=== PATIENT | male | born 1960 | race American Indian/Alaskan Native ===

== ENCOUNTER 2017-09-25 01:43 | Inpatient (IN) | payer MEDICARE, MEDICAID ==
[2017-09-25 01:43] VITALS: BMI 50.5
[2017-09-25] MEDS ORDERED: Sodium Chloride 0.9% 1,000 ML IV ONE (02:24)
--- NOTE | 2017-09-25 02:35 | C.PDOC ---
History Of Present Illness 57 year old male with PMHx of morbid obesity s/p bariatric surgery with a gastric sleeve 2 years ago, patient has lost 300 pounds. Patient states after his surgery he developed chronic venous stasis edema. Patient has been seen at a wound care clinic but he stopped going one and half years ago. Patient reports he is changing and doing his own dressings. Patient states that for the past several days he has been having increased pain and drainage from both his legs, mostly the left. Patient denies hx of DM, fever, chills, nausea, vomit, injury, fall, trauma, loss of sensation. Time Seen by Provider: 09/25/17 02:06 Chief Complaint (Nursing): Lower Extremity Problem/Injury History Per: Patient History/Exam Limitations: no limitations Onset/Duration Of Symptoms: Hrs Current Symptoms Are (Timing): Still Present Recent travel outside of the [place]: No Additional History Per: Patient - Knee Description Of Injury: Other Past Medical History Reviewed: Historical Data, Nursing Documentation, Vital Signs Vital Signs: Last Vital Signs Temp 98.0 F 09/25/17 03:55 Pulse 101 H 09/25/17 03:55 Resp 20 09/25/17 03:55 BP 141/67 09/25/17 03:55 Pulse Ox 98 09/25/17 03:55 - Medical History PMH: Anemia, CHF, Diabetes, HTN, Rheumatoid Arthritis, Sleep Apnea Denies: Chronic Kidney Disease Other Surgeries: bariatric surgery - [facility] Procedures DRAINAGE OF LEFT LOWER LEG, OPEN APPROACH (05/19/15) DRAINAGE OF RIGHT LOWER LEG, OPEN APPROACH (05/19/15) NON-INVASIVE MECHANICAL VENTILATION (03/11/13) Family History: States: Unknown Family Hx - Social History Hx Tobacco Use: No Hx Alcohol Use: No Hx Substance Use: No (PAST USE) - Immunization History Hx Tetanus Toxoid Vaccination: No Hx Influenza Vaccination: No Hx Pneumococcal Vaccination: No Review Of Systems Constitutional: Negative for: Fever, Chills Cardiovascular: Negative for: Chest Pain, Palpitations Respiratory: Negative for: Cough, Shortness of Breath Gastrointestinal: Negative for: Nausea, Vomiting, Abdominal Pain Musculoskeletal: Positive for: Leg Pain Neurological: Negative for: Weakness, Numbness Physical Exam - Physical Exam Appears: Non-toxic, No Acute Distress, Other (obese, poor hygiene) Skin: Normal Color, Warm, Dry Head: Atraumatic, Normacephalic Eye(s): bilateral: Normal Inspection Oral Mucosa: Moist Neck: Normal ROM, Supple Chest: Symmetrical Cardiovascular: Rhythm Regular Respiratory: Normal Breath Sounds, No Rales, No Rhonchi, No Wheezing Extremity: Normal ROM, No Tenderness, Capillary Refill (< 2 seconds), Other ( lower extremity old dressing, B/L circumferential necrotic ulcers with surrounding erythema and foul smelling discharge) Pulses: Left Dorsalis Pedis: Normal, Right Dorsalis Pedis: Normal Neurological/Psych: Oriented x3, Normal Speech, Normal Motor, Normal Sensation Gait: Steady ED Course And Treatment - Laboratory Results Result Diagrams: 09/25/17 02:52 09/25/17 02:52 O2 Sat by Pulse Oximetry: 99 (ON RA) Pulse Ox Interpretation: Normal Medical Decision Making Medical Decision Making: Impression: chronic venous stasis edema Plan: * Labs * IV fluids * Blood culture * UA Disposition - Disposition Disposition: HOSPITALIZED Disposition Time: 04:17 Condition: FAIR - Clinical Impression Clinical Impression: Venous stasis dermatitis of both lower extremities, Ulcers of both lower extremities, limited to breakdown of skin - Scribe Statement The provider has reviewed the documentation as recorded by the Scribe Ammon Rincon All medical record entries made by the Scribe were at my direction and personally dictated by me. I have reviewed the chart and agree that the record accurately reflects my personal performance of the history, physical exam, medical decision making, and the department course for this patient. I have also personally directed, reviewed, and agree with the discharge instructions and disposition.
[2017-09-25] MEDS ORDERED: Dakin's Topical 0.25%-Half Strength (480 ml) TOP STA (02:42)
[2017-09-25] MEDS ORDERED: Sodium Chloride 0.9% 1,000 ML ONE (02:45)
[2017-09-25 02:55] LABS: BASO # 0.1 K/uL (0.0-0.2); BASO % 0.9 % (0.0-2.0); EOS # 0.5 K/uL (0.0-0.7); EOS % 7.1 % (0.0-4.0); HEMOGLOBIN 11.9 g/dL (12.0-18.0); LYMPH # 2.7 K/uL (1.0-4.3); MEAN CELL VOLUME 77.8 fL (80.0-94.0); MEAN CORPUSCULAR HEMOGLOBIN 24.8 pg (27.0-31.0); MEAN CORPUSCULAR HGB CONC 31.9 g/dL (33.0-37.0); MEAN PLATELET VOLUME 7.1 fL (7.2-11.7); MONO % 14.6 % (0.0-10.0); NEUT # 2.6 K/uL (1.8-7.0); NEUT % 37.4 % (50.0-75.0); NRBC % 0.2 % (0.0-2.0); RBC 4.79 Mil/uL (4.40-5.90); WHITE BLOOD COUNT 6.9 K/uL (4.8-10.8)
[2017-09-25 03:14] LABS: ALB/GLOB RATIO 0.9 (1.0-2.1); ALBUMIN 3.3 g/dL (3.5-5.0); ALT/SGPT 43 U/L (21-72); AST/SGOT 44 U/L (17-59); BLOOD UREA NITROGEN 12 mg/dL (9-20); CALCIUM 8.4 mg/dl (8.6-10.4); GFR AFRICAN-AMERICAN > 60; GFR NON-AFRICAN AMERICAN > 60
[2017-09-25] MEDS ORDERED: Morphine 4 MG/ML VIAL IV ONE ×2 (03:45→05:30)
[2017-09-25] MEDS ORDERED: Morphine 4 MG/ML VIAL ONE (03:49)
--- NOTE | 2017-09-25 05:29 | CP.PCM.CON ---
<Blake Hart - Last Filed: 09/25/17 05:56> History of Present Illness - History of Present Illness History of Present Illness: Surgery: Dr. Lorenz CC: Chronic LE wounds HPI: 57M w. pmh of obesity, HTN, DM, s/p gastric sleeve 2 yrs ago presents w. exacerbation of B/L LE wounds. Pt states that he has had chronic wounds for several yrs. Wounds were initially being managed by wound care, then by himself with compression wraps. He states that this week he began experiencing increased pain in his calves. Pain is described as burning. Pain is constant. Pain improves with ambulation, worsens w. rest. Pt states that 4 days ago his legs began to weep serous fluid, no odor. He denies F/C, no N/V, no changes in appetite. PMH: See above PSH: Gastric sleeve Meds: MAR reviewed ALL: Iodine Social: No ETOH/tobacco/drugs Fhx: Non-contributory Review of Systems - Review of Systems All systems: reviewed and no additional remarkable complaints except (HPI) Past Patient History - Infectious Disease Hx of Infectious Diseases: None - Past Medical History & Family History Past Medical History?: Yes - Past Social History Smoking Status: Never Smoked - CARDIAC Hx Congestive Heart Failure: Yes Hx Hypertension: Yes - PULMONARY Hx Sleep Apnea: Yes - NEUROLOGICAL Hx Neurological Disorder: No - HEENT Hx HEENT Problems: No - RENAL Hx Chronic Kidney Disease: No - ENDOCRINE/METABOLIC Hx Endocrine Disorders: No - HEMATOLOGICAL/ONCOLOGICAL Hx Anemia: Yes - INTEGUMENTARY Hx Dermatological Problems: No - MUSCULOSKELETAL/RHEUMATOLOGICAL Hx Rheumatoid Arthritis: Yes - GASTROINTESTINAL Hx Gastrointestinal Disorders: Yes Hx Bowel Surgery: Yes - GENITOURINARY/GYNECOLOGICAL Hx Genitourinary Disorders: No - PSYCHIATRIC Hx Substance Use: No (PAST USE) - SURGICAL HISTORY Hx Surgeries: Yes Other/Comment: Gastric Sleeve, R subclavian POC - ANESTHESIA Hx Anesthesia: Yes Hx Anesthesia Reactions: No Meds Allergies/Adverse Reactions: Allergies Allergy/AdvReac Type Severity Reaction Status Date / Time Iodine and Iodide Containing Allergy Intermediate RASH Verified 09/27/17 17:38 Produc shrimp Allergy Intermediate SWELLING Verified 05/19/15 17:56 carafate Allergy NAUSEA Uncoded 10/08/13 02:32 seafood Allergy ANAPHYLAXIS Uncoded 09/27/17 17:39 Physical Exam - Constitutional Appears: Non-toxic, No Acute Distress - Head Exam Head Exam: ATRAUMATIC, NORMOCEPHALIC - Eye Exam Eye Exam: EOMI. absent: Scleral icterus - ENT Exam ENT Exam: Mucous Membranes Moist - Neck Exam Neck exam: Positive for: Full Rom - Respiratory Exam Respiratory Exam: NORMAL BREATHING PATTERN. absent: Accessory Muscle Use, Respiratory Distress - GI/Abdominal Exam GI & Abdominal Exam: Soft. absent: Tenderness - Extremities Exam Additional comments: chronic venous stasis changes of B/L LE, +serous weeping, tender to palpation, warm to touch, distal pulses dopplerable - Neurological Exam Neurological exam: Alert, Oriented x3 Results - Vital Signs Recent Vital Signs: Last Vital Signs Temp 97.5 F L 09/25/17 04:29 Pulse 78 09/25/17 04:29 Resp 20 09/25/17 04:29 BP 162/83 H 09/25/17 04:29 Pulse Ox 100 09/25/17 04:29 - Labs Result Diagrams: 09/25/17 02:52 09/25/17 02:52 Labs: Laboratory Results - last 24 hr 09/25/17 09/25/17 09/25/17 02:52 02:52 03:02 WBC 6.9 RBC 4.79 Hgb 11.9 L Hct 37.3 MCV 77.8 L MCH 24.8 L MCHC 31.9 L RDW 17.0 H Plt Count 270 MPV 7.1 L Neut % (Auto) 37.4 L Lymph % (Auto) 40.0 Sherman % (Auto) 14.6 H Eos % (Auto) 7.1 H Baso % (Auto) 0.9 Neut # (Auto) 2.6 Lymph # (Auto) 2.7 Sherman # (Auto) 1.0 H Eos # (Auto) 0.5 Baso # (Auto) 0.1 ESR 52 H Sodium 143 Potassium 4.3 Chloride 108 H Carbon Dioxide 28 Anion Gap 11 BUN 12 Creatinine 0.8 Est GFR ( Amer) > 60 Est GFR (Non-Af Amer) > 60 POC Glucose (mg/dL) Random Glucose 99 Lactic Acid 1.4 Calcium 8.4 L Total Bilirubin 0.4 AST 44 ALT 43 Alkaline Phosphatase 119 C-Reactive Protein 45.70 H Total Protein 7.1 Albumin 3.3 L Globulin 3.8 Albumin/Globulin Ratio 0.9 L 09/25/17 03:53 WBC RBC Hgb Hct MCV MCH MCHC RDW Plt Count MPV Neut % (Auto) Lymph % (Auto) Sherman % (Auto) Eos % (Auto) Baso % (Auto) Neut # (Auto) Lymph # (Auto) Sherman # (Auto) Eos # (Auto) Baso # (Auto) ESR Sodium Potassium Chloride Carbon Dioxide Anion Gap BUN Creatinine Est GFR ( Amer) Est GFR (Non-Af Amer) POC Glucose (mg/dL) 88 Random Glucose Lactic Acid Calcium Total Bilirubin AST ALT Alkaline Phosphatase C-Reactive Protein Total Protein Albumin Globulin Albumin/Globulin Ratio Assessment & Plan - Assessment and Plan (Free Text) Assessment: 57M w. chronic B/L LE wounds 2/2 venous stasis -Pt had ABIs done out Pt in May -L ROSA: 1.22, L PVV: 386 -R ROSA: 1.19, R PVV: 468 -Will order duplex to R/O DVT -compression/leg elevation -local wound care -f/u Cxs, will start abx if positive -d/w attending Tanner PGY4 <Spenser Lorenz B - Last Filed: 09/30/17 22:13> Meds - Medications Medications: Current Medications Enoxaparin Sodium (Lovenox) 40 mg SC DAILY [facility] Last Admin: 09/30/17 09:39 Dose: Not Given Furosemide (Lasix) 40 mg PO BID [facility] Last Admin: 09/30/17 17:09 Dose: 40 mg Vancomycin/Sodium Chloride (Vancomycin 1 Gm/Ns 200 Ml) 1 gm in 200 mls @ 133.333 mls/hr IVPB Q8H [facility] PRN Reason: Protocol Stop: 10/03/17 18:46 Last Admin: 09/30/17 18:02 Dose: 133.333 mls/hr Morphine Sulfate (Morphine Extended Release Tab) 60 mg PO Q12H [facility] Last Admin: 09/30/17 12:05 Dose: 60 mg Oxycodone HCl (Oxycodone Immediate Release Tab) 30 mg PO Q6H PRN PRN Reason: Pain, severe (8-10) Last Admin: 09/30/17 17:07 Dose: 30 mg Pantoprazole Sodium (Protonix Ec Tab) 40 mg PO DAILY [facility] Last Admin: 09/30/17 11:02 Dose: 40 mg Spironolactone (Aldactone) 25 mg PO BID [facility] Last Admin: 09/30/17 17:07 Dose: 25 mg Results - Vital Signs Recent Vital Signs: Last Vital Signs Temp 98.6 F 09/30/17 15:00 Pulse 87 09/30/17 15:00 Resp 20 09/30/17 15:00 BP 147/78 09/30/17 17:09 Pulse Ox 96 09/30/17 15:00 - Labs Result Diagrams: 09/26/17 07:10 09/26/17 07:10 Attending/Attestation - Attestation I have personally seen and examined this patient.: Yes I have fully participated in the care of the patient.: Yes I have reviewed all pertinent clinical information: Yes Notes (Text): Pt was seen and examined at bedside Agree with above note and assessment Pt with B/L LE cellulitis and Chronic Venous ulcer Vascular surgery consult with Dr. Odonnell No acute General surgical intervention required Plan d.w pt in detail. Risk and benefit explained in detail.
[2017-09-25] MEDS ORDERED: Oxycodone/Acetaminophen 5/325 mg Tab PO ONE (05:48)
--- NOTE | 2017-09-25 07:16 | CP.PCM.CON ---
History of Present Illness - History of Present Illness History of Present Illness: Surgery: Dr. Tariq CC: Chronic LE wounds HPI: 57M w. pmh of obesity, HTN, DM, s/p gastric sleeve 2 yrs ago presents w. exacerbation of B/L LE wounds. Pt states that he has had chronic wounds for several yrs. Wounds were initially being managed by wound care, then by himself with compression wraps. He states that this week he began experiencing increased pain in his calves. Pain is described as burning. Pain is constant. Pain improves with ambulation, worsens w. rest. Pt states that 4 days ago his legs began to weep serous fluid, no odor. He denies F/C, no N/V, no changes in appetite. PMH: See above PSH: Gastric sleeve Meds: MAR reviewed ALL: Iodine Social: No ETOH/tobacco/drugs Fhx: Non-contributory Review of Systems - Review of Systems All systems: reviewed and no additional remarkable complaints except (HPI) Past Patient History - Infectious Disease Hx of Infectious Diseases: None - Past Medical History & Family History Past Medical History?: Yes - Past Social History Smoking Status: Never Smoked - CARDIAC Hx Congestive Heart Failure: Yes Hx Hypertension: Yes - PULMONARY Hx Sleep Apnea: Yes - NEUROLOGICAL Hx Neurological Disorder: No - HEENT Hx HEENT Problems: No - RENAL Hx Chronic Kidney Disease: No - ENDOCRINE/METABOLIC Hx Endocrine Disorders: No - HEMATOLOGICAL/ONCOLOGICAL Hx Anemia: Yes - INTEGUMENTARY Hx Dermatological Problems: No - MUSCULOSKELETAL/RHEUMATOLOGICAL Hx Rheumatoid Arthritis: Yes - GASTROINTESTINAL Hx Gastrointestinal Disorders: Yes Hx Bowel Surgery: Yes - GENITOURINARY/GYNECOLOGICAL Hx Genitourinary Disorders: No - PSYCHIATRIC Hx Substance Use: No (PAST USE) - SURGICAL HISTORY Hx Surgeries: Yes Other/Comment: Gastric Sleeve, R subclavian POC - ANESTHESIA Hx Anesthesia: Yes Hx Anesthesia Reactions: No Meds Allergies/Adverse Reactions: Allergies Allergy/AdvReac Type Severity Reaction Status Date / Time Iodine and Iodide Containing Allergy Intermediate RASH Verified 05/19/15 11:58 Produc shrimp Allergy Intermediate SWELLING Verified 05/19/15 17:56 carafate Allergy NAUSEA Uncoded 10/08/13 02:32 seafood Allergy ANAPHYLAXIS Uncoded 03/07/17 00:20 - Medications Medications: Current Medications Pneumococcal Polyvalent Vaccine (Pneumovax 23 Vaccine) 0.5 ml IM .ONCE ONE Stop: 09/28/17 10:01 Physical Exam - Constitutional Appears: Non-toxic, No Acute Distress - Head Exam Head Exam: ATRAUMATIC, NORMOCEPHALIC - Eye Exam Eye Exam: EOMI - ENT Exam ENT Exam: Mucous Membranes Moist - Respiratory Exam Respiratory Exam: NORMAL BREATHING PATTERN. absent: Accessory Muscle Use, Respiratory Distress - GI/Abdominal Exam GI & Abdominal Exam: Soft. absent: Tenderness - Extremities Exam Additional comments: chronic venous stasis changes of B/L LE, +serous weeping, tender to palpation, warm to touch, distal pulses dopplerable - Neurological Exam Neurological exam: Alert, Oriented x3 - Skin Skin Exam: Dry, Normal Color Results - Vital Signs Recent Vital Signs: Last Vital Signs Temp 97.5 F L 09/25/17 04:29 Pulse 78 09/25/17 04:29 Resp 20 09/25/17 04:29 BP 162/83 H 09/25/17 04:29 Pulse Ox 100 09/25/17 04:29 - Labs Result Diagrams: 09/25/17 02:52 09/25/17 02:52 Labs: Laboratory Results - last 24 hr 09/25/17 09/25/17 09/25/17 02:52 02:52 03:02 WBC 6.9 RBC 4.79 Hgb 11.9 L Hct 37.3 MCV 77.8 L MCH 24.8 L MCHC 31.9 L RDW 17.0 H Plt Count 270 MPV 7.1 L Neut % (Auto) 37.4 L Lymph % (Auto) 40.0 [place] % (Auto) 14.6 H Eos % (Auto) 7.1 H Baso % (Auto) 0.9 Neut # (Auto) 2.6 Lymph # (Auto) 2.7 [place] # (Auto) 1.0 H Eos # (Auto) 0.5 Baso # (Auto) 0.1 ESR 52 H Sodium 143 Potassium 4.3 Chloride 108 H Carbon Dioxide 28 Anion Gap 11 BUN 12 Creatinine 0.8 Est GFR ( Amer) > 60 Est GFR (Non-Af Amer) > 60 POC Glucose (mg/dL) Random Glucose 99 Lactic Acid 1.4 Calcium 8.4 L Total Bilirubin 0.4 AST 44 ALT 43 Alkaline Phosphatase 119 C-Reactive Protein 45.70 H Total Protein 7.1 Albumin 3.3 L Globulin 3.8 Albumin/Globulin Ratio 0.9 L 09/25/17 03:53 WBC RBC Hgb Hct MCV MCH MCHC RDW Plt Count MPV Neut % (Auto) Lymph % (Auto) [place] % (Auto) Eos % (Auto) Baso % (Auto) Neut # (Auto) Lymph # (Auto) [place] # (Auto) Eos # (Auto) Baso # (Auto) ESR Sodium Potassium Chloride Carbon Dioxide Anion Gap BUN Creatinine Est GFR ( Amer) Est GFR (Non-Af Amer) POC Glucose (mg/dL) 88 Random Glucose Lactic Acid Calcium Total Bilirubin AST ALT Alkaline Phosphatase C-Reactive Protein Total Protein Albumin Globulin Albumin/Globulin Ratio Assessment & Plan - Assessment and Plan (Free Text) Assessment: 57M w. chronic B/L LE wounds 2/2 venous stasis -Pt had ABIs done out Pt in May -L ROSA: 1.22, L PVV: 386 -R ROSA: 1.19, R PVV: 468 -Will order duplex to R/O DVT -compression/leg elevation -local wound care -f/u Cxs, will start abx if positive -d/w attending Tanner PGY4
--- NOTE | 2017-09-25 07:42 | CP.PCM.PN ---
Subjective - Date & Time of Evaluation Date of Evaluation: 09/25/17 Time of Evaluation: 07:42 - Subjective Subjective: Internal Medicine Progress Note - Dr Dereje Ybarra Service Patient seen and examined at bedside. Per nursing no acute events overnight. Patient presented to the hospital for worsening lower extremity edema and non- healing wound on his left lower leg. Patient states that he has been having increasing pain and drainage in his legs. He has not seen a ladle pourer is years and does his own dressing changes at home. Patient currently asking for pain medication, offers no other complaints at this time. Denies headaches, dizziness , cp, palpitations, sob, abdominal pain, urinary symptoms. Objective - Vital Signs/Intake and Output Vital Signs (last 24 hours): Temp Pulse Resp BP Pulse Ox 97.5 F L 78 20 162/83 H 100 09/25/17 04:29 09/25/17 04:29 09/25/17 04:29 09/25/17 04:29 09/25/17 04:29 Intake and Output: 09/25/17 09/25/17 06:59 18:59 Intake Total 300 Output Total 0 Balance 300 - Medications Medications: Current Medications Pneumococcal Polyvalent Vaccine (Pneumovax 23 Vaccine) 0.5 ml IM .ONCE ONE Stop: 09/28/17 10:01 - Labs Labs: 09/25/17 02:52 09/25/17 02:52 - Constitutional Appears: Non-toxic, No Acute Distress - Head Exam Head Exam: ATRAUMATIC, NORMAL INSPECTION, NORMOCEPHALIC - Eye Exam Eye Exam: EOMI, Normal appearance Pupil Exam: NORMAL ACCOMODATION - ENT Exam ENT Exam: Mucous Membranes Moist - Neck Exam Neck Exam: Full ROM - Respiratory Exam Respiratory Exam: Clear to Ausculation Bilateral, NORMAL BREATHING PATTERN. absent: Rales, Rhonchi, Wheezes - Cardiovascular Exam Cardiovascular Exam: REGULAR RHYTHM, +S1, +S2 - GI/Abdominal Exam GI & Abdominal Exam: Soft, Normal Bowel Sounds. absent: Guarding, Rigid, Tenderness - Rectal Exam Rectal Exam: Deferred - Extremities Exam Additional comments: Chronic venous stasis skin changes Both lower extremities dressed in EVELYN bandages Lower extremity edema bilaterally +Pedal pulses bilaterally - Back Exam Back Exam: NORMAL INSPECTION - Neurological Exam Neurological Exam: Alert, Awake, Oriented x3 - Psychiatric Exam Psychiatric exam: Normal Affect, Normal Mood - Skin Skin Exam: Dry, Normal Color, Warm Assessment and Plan - Assessment and Plan (Free Text) Assessment: A/P: Patient is a 57 year old male with past medical history of Hypertension, Obesity, S/P gastric sleeve 2 years ago presented the ED for worsening pain and drainage from his left lower extremity. Lower extremity wound/Chronic Venous stasis -Stable, afebrile -Lower extremity dopplers negative for DVT -ESR and CRP elevated -Wound cultures pending -Started on IV Zosyn 3.375mg Q6H and IV Vancomycin 1gm daily -Wound care consult placed -Continue Lasix 40mg PO BID, Aldactone 25mg PO daily -F/U hgbA1c, Lipid panel, procalcitonin -Infectious Disease on consult, help appreciated -Vascular on consult, help appreciated -Podiatry on consult, help appreciated -Physical therapy evaluation ordered Chronic Opiate use 2/2 chronic pain -Patient states that he has been on pain medications for chronic back pain and leg pain -Confirmed with Pharamacy, patient takes Oxycodone 30mg PO Q6H prn, Morphine 60mg Q12H [facility] -Will restart these medications while in house -He sees Dr Amaro for pain management outpatient Poor Venous Access -Patient has a portacath that non-functioning -PICC line consult placed GI/DVT ppx: -Protonix 40mg PO daily -Lovenox 40mg SC daily Plan discussed with Dr Dereje Ross DO PGY-2
[2017-09-25] MEDS: Enoxaparin 40 mg Syringe SC SCH (10:32)
[2017-09-25] MEDS ORDERED: OXYCODONE HYDROCHLORIDE 30 MG PO PRN (11:26)
[2017-09-25] MEDS ORDERED: Morphine 60 mg SR Tab PO SCH (11:45)
[2017-09-25 11:50] LABS: HDL CHOLESTEROL 31 mg/dL (30-70)
[2017-09-25] MEDS ORDERED: OXYCODONE HYDROCHLORIDE 30 MG PO SCH (12:00)
[2017-09-25 12:01] LABS: LDL CHOLESTEROL 63 mg/dL (0-129)
[2017-09-25] MEDS: Pantoprazole 40 mg EC Tab PO SCH (12:33)
[2017-09-25] MEDS: Morphine 30 mg SR Tab PO SCH (12:33)
[2017-09-25] MEDS: Piperacill/Tazo 3.375gm in Dex 3.375 GM/50 ML BAG IVPB SCH ×2 (14:00→19:20)
[2017-09-25] MEDS: Vancomycin 1 gm/NS 200 ml 1 GM/200 ML BAG IVPB SCH (14:45)
[2017-09-25 15:09] LABS: URINE BILIRUBIN NEGATIVE (NEGATIVE); URINE BLOOD NEGATIVE (NEGATIVE); URINE CLARITY Clear (Clear); URINE COLOR Yellow (YELLOW); URINE GLUCOSE (UA) NORMAL (Normal); URINE LEUKOCYTE ESTERASE NEG Leu/uL (Negative); URINE PROTEIN NEGATIVE (NEGATIVE)
--- NOTE | 2017-09-25 16:08 | VASCLAB ---
PROCEDURE: Lower Extremity Venous Duplex Exam. HISTORY: Pain in limb, r/o dvt PRIORS: None. TECHNIQUE: Bilateral common femoral, femoral, popliteal and posterior tibial, peroneal and great saphenous veins were evaluated. Flow was assessed with color Doppler, compressibility, assessment of phasic flow and augmentation response. Report prepared by MARISABEL Sadler, RVT FINDINGS: RIGHT: 1. Common Femoral Vein: 1.1. Compressibility - Fully compressible: Thrombus - None : Flow - Phasic: Augmentation -Normal: Reflux - None. 2. Femoral Vein: 2.1. Compressibility - Fully compressible: Thrombus - None : Flow - Phasic: Augmentation -Normal: Reflux - None. 3. Popliteal Vein: 3.1. Compressibility - Fully compressible: Thrombus - None : Flow - Phasic: Augmentation -Normal: Reflux - None. 4. Posterior Tibial Vein: 5. Peroneal Vein: 6. Great Saphenous Vein: 6.1. Compressibility - Fully compressible: Thrombus - None: Flow - Phasic: Augmentation - Normal: Reflux - None. LEFT: 1. Common Femoral Vein: 1.1. Compressibility - Fully compressible: Thrombus - None: Flow - Phasic: Augmentation -Normal: Reflux - None. 2. Femoral Vein: 2.1. Compressibility - Fully compressible: Thrombus - None: Flow - Phasic: Augmentation -Normal: Reflux - None. 3. Popliteal Vein: 3.1. Compressibility - Fully compressible: Thrombus - None : Flow - Phasic: Augmentation -Normal: Reflux - None. 4. Posterior Tibial Vein: 5. Peroneal Vein: 6. Great Saphenous Vein: 6.1. Compressibility - Fully compressible: Thrombus - None: Flow - Phasic: Augmentation - Normal: Reflux - None. OTHER FINDINGS: Unable to image bilateral posterior tibial and peroneal veins, due to swelling and wounds. IMPRESSION: Right: No evidence of deep or superficial vein thrombosis of the right lower extremity, for those imaged veins. Normal valve function noted of the right side. Left: No evidence of deep or superficial vein thrombosis of the left lower extremity, for those imaged veins. Normal valve function noted of the left side.
--- NOTE | 2017-09-25 17:24 | RAD ---
HISTORY: PICC Insertion COMPARISON: Chest radiograph dated 05/19/2015 FINDINGS: LUNGS: No active pulmonary disease. PLEURA: No significant pleural effusion identified, no pneumothorax apparent. CARDIOVASCULAR: Cardiomediastinal silhouette stably enlarged. OSSEOUS STRUCTURES: Unchanged. VISUALIZED UPPER ABDOMEN: Normal. OTHER FINDINGS: New left upper extremity PICC with catheter tip at the junction of the brachiocephalic vein and SVC. Right internal jugular access central venous catheter, unchanged. IMPRESSION: New left upper extremity PICC with catheter tip at the junction of the brachiocephalic vein and SVC.
[2017-09-25] MEDS: oxyCODONE 30 mg Immediate Release Tab PO PRN (17:57)
--- NOTE | 2017-09-25 20:55 | CP.PCM.HP ---
Past Patient History - Infectious Disease Hx of Infectious Diseases: None - Past Medical History & Family History Past Medical History?: Yes - Past Social History Smoking Status: Never Smoked - CARDIAC Hx Congestive Heart Failure: Yes Hx Hypertension: Yes - PULMONARY Hx Sleep Apnea: Yes - NEUROLOGICAL Hx Neurological Disorder: No - HEENT Hx HEENT Problems: No - RENAL Hx Chronic Kidney Disease: No - ENDOCRINE/METABOLIC Hx Endocrine Disorders: No - HEMATOLOGICAL/ONCOLOGICAL Hx Anemia: Yes - INTEGUMENTARY Hx Dermatological Problems: No - MUSCULOSKELETAL/RHEUMATOLOGICAL Hx Arthritis: Yes (KNEE, HIP, BACK) Hx Rheumatoid Arthritis: Yes - GASTROINTESTINAL Hx Gastrointestinal Disorders: Yes Hx Bowel Surgery: Yes - GENITOURINARY/GYNECOLOGICAL Hx Genitourinary Disorders: No - PSYCHIATRIC Hx Substance Use: No (PAST USE) - SURGICAL HISTORY Hx Surgeries: Yes Other/Comment: Gastric Sleeve, R subclavian POC - ANESTHESIA Hx Anesthesia: Yes Hx Anesthesia Reactions: No Meds Allergies/Adverse Reactions: Allergies Allergy/AdvReac Type Severity Reaction Status Date / Time Iodine and Iodide Containing Allergy Intermediate RASH Verified 05/19/15 11:58 Produc shrimp Allergy Intermediate SWELLING Verified 05/19/15 17:56 carafate Allergy NAUSEA Uncoded 10/08/13 02:32 seafood Allergy ANAPHYLAXIS Uncoded 03/07/17 00:20 Physical Exam - Constitutional Appears: Well - Head Exam Head Exam: ATRAUMATIC, NORMAL INSPECTION, NORMOCEPHALIC - Eye Exam Eye Exam: EOMI, Normal appearance, PERRL Pupil Exam: NORMAL ACCOMODATION, PERRL - ENT Exam ENT Exam: Mucous Membranes Moist, Normal Exam - Neck Exam Neck exam: Positive for: Normal Inspection - Respiratory Exam Respiratory Exam: Decreased Breath Sounds - Cardiovascular Exam Cardiovascular Exam: REGULAR RHYTHM, +S1, +S2 - GI/Abdominal Exam GI & Abdominal Exam: Diminished Bowel Sounds, Soft - Rectal Exam Rectal Exam: Deferred Results - Vital Signs Recent Vital Signs: Last Vital Signs Temp 98.1 F 09/25/17 15:56 Pulse 72 09/25/17 15:56 Resp 20 09/25/17 15:56 BP 130/84 09/25/17 17:59 Pulse Ox 100 09/25/17 15:56 - Labs Result Diagrams: 09/25/17 02:52 09/25/17 02:52 Labs: Laboratory Results - last 24 hr 09/25/17 09/25/17 09/25/17 02:52 02:52 03:02 WBC 6.9 RBC 4.79 Hgb 11.9 L Hct 37.3 MCV 77.8 L MCH 24.8 L MCHC 31.9 L RDW 17.0 H Plt Count 270 MPV 7.1 L Neut % (Auto) 37.4 L Lymph % (Auto) 40.0 [place] % (Auto) 14.6 H Eos % (Auto) 7.1 H Baso % (Auto) 0.9 Neut # (Auto) 2.6 Lymph # (Auto) 2.7 [place] # (Auto) 1.0 H Eos # (Auto) 0.5 Baso # (Auto) 0.1 ESR 52 H Sodium 143 Potassium 4.3 Chloride 108 H Carbon Dioxide 28 Anion Gap 11 BUN 12 Creatinine 0.8 Est GFR ( Amer) > 60 Est GFR (Non-Af Amer) > 60 POC Glucose (mg/dL) Random Glucose 99 Hemoglobin A1c Lactic Acid 1.4 Calcium 8.4 L Total Bilirubin 0.4 AST 44 ALT 43 Alkaline Phosphatase 119 C-Reactive Protein 45.70 H Total Protein 7.1 Albumin 3.3 L Globulin 3.8 Albumin/Globulin Ratio 0.9 L Triglycerides 130 D Cholesterol 141 LDL Cholesterol Direct 63 HDL Cholesterol 31 Urine Color Urine Clarity Urine pH Ur Specific [place] Urine Protein Urine Glucose (UA) Urine Ketones Urine Blood Urine Nitrate Urine Bilirubin Urine Urobilinogen Ur Leukocyte Esterase Urine WBC (Auto) Urine RBC (Auto) 09/25/17 09/25/17 09/25/17 03:53 11:40 14:56 WBC RBC Hgb Hct MCV MCH MCHC RDW Plt Count MPV Neut % (Auto) Lymph % (Auto) [place] % (Auto) Eos % (Auto) Baso % (Auto) Neut # (Auto) Lymph # (Auto) [place] # (Auto) Eos # (Auto) Baso # (Auto) ESR Sodium Potassium Chloride Carbon Dioxide Anion Gap BUN Creatinine Est GFR ( Amer) Est GFR (Non-Af Amer) POC Glucose (mg/dL) 88 Random Glucose Hemoglobin A1c 5.9 Lactic Acid Calcium Total Bilirubin AST ALT Alkaline Phosphatase C-Reactive Protein Total Protein Albumin Globulin Albumin/Globulin Ratio Triglycerides Cholesterol LDL Cholesterol Direct HDL Cholesterol Urine Color Yellow Urine Clarity Clear Urine pH 5.0 Ur Specific [place] 1.015 Urine Protein Negative Urine Glucose (UA) Normal Urine Ketones Negative Urine Blood Negative Urine Nitrate Negative Urine Bilirubin Negative Urine Urobilinogen 2.0 Ur Leukocyte Esterase Neg Urine WBC (Auto) < 1 Urine RBC (Auto) 1
[2017-09-26] MEDS: Morphine 30 mg SR Tab PO SCH ×2 (00:25→11:49)
[2017-09-26] MEDS: Piperacill/Tazo 3.375gm in Dex 3.375 GM/50 ML BAG IVPB SCH ×4 (01:24→18:52)
[2017-09-26 07:36] LABS: BASO % 0.4 % (0.0-2.0); EOS # 0.3 K/uL (0.0-0.7); EOS % 7.2 % (0.0-4.0); HEMOGLOBIN 12.3 g/dL (12.0-18.0); LYMPH # 1.9 K/uL (1.0-4.3); LYMPH % 41.3 % (20.0-40.0); MEAN CELL VOLUME 78.2 fL (80.0-94.0); MEAN CORPUSCULAR HEMOGLOBIN 25.5 pg (27.0-31.0); MEAN CORPUSCULAR HGB CONC 32.6 g/dL (33.0-37.0); MEAN PLATELET VOLUME 7.3 fL (7.2-11.7); MONO # 0.5 K/uL (0.0-0.8); NEUT # 1.9 K/uL (1.8-7.0); NEUT % 41.1 % (50.0-75.0); NRBC % 0.1 % (0.0-2.0); RBC 4.82 Mil/uL (4.40-5.90); RED CELL DISTRIBUTION WIDTH 17.7 % (11.5-14.5); WHITE BLOOD COUNT 4.7 K/uL (4.8-10.8)
[2017-09-26 07:41] LABS: ALB/GLOB RATIO 0.9 (1.0-2.1); ALBUMIN 3.1 g/dL (3.5-5.0); ALT/SGPT 35 U/L (21-72); AST/SGOT 48 U/L (17-59); BLOOD UREA NITROGEN 10 mg/dL (9-20); CALCIUM 8.3 mg/dl (8.6-10.4); GFR AFRICAN-AMERICAN > 60; GFR NON-AFRICAN AMERICAN > 60
--- NOTE | 2017-09-26 08:15 | CP.PCM.PN ---
Subjective - Date & Time of Evaluation Date of Evaluation: 09/26/17 Time of Evaluation: 08:12 - Subjective Subjective: Vascular Surgery Progress Note for Dr. Tariq Pt seen and evaluated this AM. Awake and resting comfortably in bed. Exhibiting pain in his LE especially the left leg. Dressings were in place. Denies any f/c , SOB, CP, or n/v/d. Objective - Vital Signs/Intake and Output Vital Signs (last 24 hours): Temp Pulse Resp BP Pulse Ox 98 F 71 20 138/77 98 09/26/17 00:00 09/26/17 00:00 09/26/17 00:00 09/26/17 00:00 09/26/17 00:00 Intake and Output: 09/26/17 09/26/17 06:59 18:59 Intake Total 450 Output Total 400 Balance 50 - Medications Medications: Current Medications Enoxaparin Sodium (Lovenox) 40 mg SC DAILY [facility] Last Admin: 09/25/17 10:32 Dose: Not Given Furosemide (Lasix) 40 mg PO BID [facility] Last Admin: 09/25/17 17:59 Dose: 40 mg Piperacillin Sod/Tazobactam Sod (Zosyn 3.375 Gm Iv Premix) 3.375 gm in 50 mls @ 100 mls/hr IVPB Q6H [facility] PRN Reason: Protocol Last Admin: 09/26/17 07:24 Dose: Not Given Vancomycin/Sodium Chloride (Vancomycin 1 Gm/Ns 200 Ml) 1 gm in 200 mls @ 133.333 mls/hr IVPB Q24H [facility] PRN Reason: Protocol Stop: 09/30/17 14:16 Last Admin: 09/25/17 14:45 Dose: Not Given Morphine Sulfate (Morphine Extended Release Tab) 60 mg PO Q12H [facility] Last Admin: 09/26/17 00:25 Dose: 60 mg Oxycodone HCl (Oxycodone Immediate Release Tab) 30 mg PO Q8H PRN PRN Reason: Pain, severe (8-10) Last Admin: 09/25/17 17:57 Dose: 30 mg Pantoprazole Sodium (Protonix Ec Tab) 40 mg PO DAILY [facility] Last Admin: 09/25/17 12:33 Dose: 40 mg Pneumococcal Polyvalent Vaccine (Pneumovax 23 Vaccine) 0.5 ml IM .ONCE ONE Stop: 09/28/17 10:01 Spironolactone (Aldactone) 25 mg PO BID [facility] Last Admin: 09/25/17 17:58 Dose: 25 mg - Labs Labs: 09/26/17 07:10 09/26/17 07:10 - Constitutional Appears: Well, Non-toxic, No Acute Distress - Head Exam Head Exam: ATRAUMATIC, NORMAL INSPECTION, NORMOCEPHALIC - Eye Exam Eye Exam: EOMI, Normal appearance - Respiratory Exam Respiratory Exam: Clear to Ausculation Bilateral, NORMAL BREATHING PATTERN - Cardiovascular Exam Cardiovascular Exam: REGULAR RHYTHM, +S1, +S2. absent: Murmur - GI/Abdominal Exam GI & Abdominal Exam: Soft, Normal Bowel Sounds. absent: Tenderness - Extremities Exam Extremities Exam: Calf Tenderness, Pedal Edema, Tenderness Additional comments: erythematous, with drainage, excoriations and edema dressings intact - Neurological Exam Neurological Exam: Alert, Awake, Oriented x3 - Psychiatric Exam Psychiatric exam: Normal Affect, Normal Mood - Skin Skin Exam: Erythema Assessment and Plan - Assessment and Plan (Free Text) Assessment: 57M w. chronic B/L LE wounds 2/2 venous stasis Plan: c/w compression/leg elevation c/w local wound care - Dr. Avilez Podiatry consulted f/u Cxs, will start abx if positive - ID consulted no further surgical intervention at this time please reconsult as needed Adi Cronin PGY1
[2017-09-26] MEDS: Pantoprazole 40 mg EC Tab PO SCH (09:16)
[2017-09-26] MEDS: Enoxaparin 40 mg Syringe SC SCH (09:19)
--- NOTE | 2017-09-26 10:29 | CP.PCM.PN ---
Subjective - Date & Time of Evaluation Date of Evaluation: 09/26/17 Time of Evaluation: 10:26 - Subjective Subjective: pt has pain lower ext stasis dermatitis and ulcers infected Objective - Vital Signs/Intake and Output Vital Signs (last 24 hours): Temp Pulse Resp BP Pulse Ox 98.5 F 93 H 20 144/70 99 09/26/17 08:00 09/26/17 08:00 09/26/17 08:00 09/26/17 09:16 09/26/17 08:00 Intake and Output: 09/26/17 09/26/17 06:59 18:59 Intake Total 450 Output Total 400 Balance 50 - Medications Medications: Current Medications Enoxaparin Sodium (Lovenox) 40 mg SC DAILY [facility] Last Admin: 09/26/17 09:19 Dose: Not Given Furosemide (Lasix) 40 mg PO BID [facility] Last Admin: 09/26/17 09:16 Dose: 40 mg Piperacillin Sod/Tazobactam Sod (Zosyn 3.375 Gm Iv Premix) 3.375 gm in 50 mls @ 100 mls/hr IVPB Q6H [facility] PRN Reason: Protocol Last Admin: 09/26/17 07:24 Dose: Not Given Vancomycin/Sodium Chloride (Vancomycin 1 Gm/Ns 200 Ml) 1 gm in 200 mls @ 133.333 mls/hr IVPB Q24H [facility] PRN Reason: Protocol Stop: 09/30/17 14:16 Last Admin: 09/25/17 14:45 Dose: Not Given Morphine Sulfate (Morphine Extended Release Tab) 60 mg PO Q12H [facility] Last Admin: 09/26/17 00:25 Dose: 60 mg Oxycodone HCl (Oxycodone Immediate Release Tab) 30 mg PO Q8H PRN PRN Reason: Pain, severe (8-10) Last Admin: 09/25/17 17:57 Dose: 30 mg Pantoprazole Sodium (Protonix Ec Tab) 40 mg PO DAILY [facility] Last Admin: 09/26/17 09:16 Dose: 40 mg Pneumococcal Polyvalent Vaccine (Pneumovax 23 Vaccine) 0.5 ml IM .ONCE ONE Stop: 09/28/17 10:01 Spironolactone (Aldactone) 25 mg PO BID [facility] Last Admin: 09/26/17 09:16 Dose: 25 mg - Labs Labs: 09/26/17 07:10 09/26/17 07:10 - Constitutional Appears: Non-toxic, In Acute Distress - Head Exam Head Exam: ATRAUMATIC - Eye Exam Eye Exam: Conjunctival injection - ENT Exam ENT Exam: Mucous Membranes Moist - Neck Exam Neck Exam: Full ROM - Respiratory Exam Respiratory Exam: Clear to Ausculation Bilateral - Cardiovascular Exam Cardiovascular Exam: REGULAR RHYTHM - GI/Abdominal Exam GI & Abdominal Exam: Normal Bowel Sounds - Rectal Exam Rectal Exam: Deferred - Exam Exam: NORMAL INSPECTION - Extremities Exam Extremities Exam: Calf Tenderness, Pedal Edema Additional comments: ulcers infected - Neurological Exam Neurological Exam: Alert, Normal Gait, Oriented x3 - Psychiatric Exam Psychiatric exam: Normal Affect - Skin Skin Exam: Normal Color Assessment and Plan - Assessment and Plan (Free Text) Assessment: infected leg ulcers stasis dermatitis s/p beriatric surgery morbid obesity bach pain hx Plan: id consult cont wound care podiatric consult and as per orders
--- NOTE | 2017-09-26 10:33 | CP.PCM.CON ---
History of Present Illness - History of Present Illness History of Present Illness: 57M w. pmh of obesity, HTN, DM, s/p gastric sleeve 2 yrs ago presents w. exacerbation of B/L LE wounds. Pt states that he has had chronic wounds for several yrs. Wounds were initially being managed by wound care, then by himself with compression wraps. He states that this week he began experiencing increased pain in his calves. Pain is described as burning. Pain is constant. Pain improves with ambulation, worsens w. rest. Pt states that 4 days ago his legs began to weep serous fluid, no odor. He denies F/C, no N/V, no changes in appetite. PMH: See above PSH: Gastric sleeve Meds: MAR reviewed ALL: Iodine Social: No ETOH/tobacco/drugs Fhx: Non-contributory Review of Systems - Review of Systems All systems: reviewed and no additional remarkable complaints except - Constitutional Constitutional: As Per HPI - EENT Eyes: absent: As Per HPI, Blind Spots, Blurred Vision, Change in Vision, Decreased Night Vision, Diplopia, Discharge, Dry Eye, Exophthalmos, Floaters, Irritation, Itchy Eyes, Loss of Peripheral Vision, Pain, Photophobia, Requires Corrective Lenses, Sees Flashes, Spots in Vision, Tunnel Vision, Other Visual Disturbances, Loss of Vision, Other Ears: absent: As Per HPI, Decreased Hearing, Ear Discharge, Ear Pain, Tinnitus, Abnormal Hearing, Disequilibrium, Dizziness, Other Nose/Mouth/Throat: absent: As Per HPI, Epistaxis, Nasal Congestion, Nasal Discharge, Nasal Obstruction, Nasal Trauma, Nose Pain, Post Nasal Drip, Sinus Pain, Sinus Pressure, Bleeding Gums, Change in Voice, Dental Pain, Dry Mouth, Dysphagia, Halitosis, Hoarsness, Lip Swelling, Mouth Lesions, Mouth Pain, Odynophagia, Sore Throat, Throat Swelling, Tongue Swelling, Facial Pain, Neck Pain, Neck Mass, Other - Cardiovascular Cardiovascular: absent: As Per HPI, Acrocyanosis, Chest Pain, Chest Pain at Rest , Chest Pain with Activity, Claudication, Diaphoresis, Dyspnea, Dyspnea on Exertion, Edema, Irregular Heart Rhythm, Pain Radiating to Arm/Neck/Jaw, Leg Edema, Leg Ulcers, Lightheadedness, Orthopnea, Palpitations, Paroxysmal Nocturnal Dyspnea, Pedal Edema, Radiating Pain, Rapid Heart Rate, Slow Heart Rate, Syncope, Other - Respiratory Respiratory: absent: As Per HPI, Cough, Dyspnea, Hemoptysis, Dyspnea on Exertion , Wheezing, Snoring, Stridor, Pain on Inspiration, Chest Congestion, Excessive Mucous Production, Change in Mucous Color, Pain with Coughing, Other - Gastrointestinal Gastrointestinal: absent: As Per HPI, Abdominal Pain, Belching, Bloating, Change in Bowel Habits, Change in Stool Character, Coffee Ground Emesis, Constipation, Cramping, Diarrhea, Dyspepsia, Dysphagia, Early Satiety, Excessive Flatus, Fecal Incontinence, Heartburn, Hematemesis, Hematochezia, Loose Stools, Melena, Nausea, Odynophagia, Temesmus, Vomiting, Other - Genitourinary Genitourinary: absent: As Per HPI, Change in Urinary Stream, Difficulty Urinating, Dysuria, Flank Pain, Hematuria, Pyuria, Nocturia, Urinary Incontinence, Urinary Frequency, Urinary Hesitance, Urinary Urgency, Voiding Freq/Small Amts, Freq UTI, Hx Renal/Bladder Calculi, Hx /Renal Surgery, Bladder Distension, Other - Musculoskeletal Musculoskeletal: As Per HPI - Integumentary Integumentary: As Per HPI, Skin Pain, Wounds - Neurological Neurological: absent: As Per HPI, Abnormal Gait, Abnormal Hearing, Abnormal Movements, Abnormal Speech, Behavioral Changes, Burning Sensations, Confusion, Convulsions, Disequilibrium, Dizziness, Numbness, Focal Weakness, Frequent Falls , Headaches, Lack of Coordination, Loss of Vision, Memory Loss, Paresthesias, Radicular Pain, Restless Legs, Sensory Deficit, Syncope, Tingling, Tremor, Vertigo, Weakness, Other Visual Disturbances, Other - Psychiatric Psychiatric: absent: As Per HPI, Abnormal Sleep Pattern, Anhedonia, Anxiety, Auditory Hallucinations, Behavioral Changes, Change in Appetite, Change in Libido, Confusion, Depression, Difficulty Concentrating, Hallucinations, Homicidal Ideation, Hopelessness, Irritability, Memory Loss, Mood Swings, Panic Attacks, Paranoia, Suicidal Ideation, Visual Hallucinations, Tactile Hallucinations, Other - Endocrine Endocrine: absent: As Per HPI, Change in Body Appearance, Change in Libido, Cold Intolorance, Deepening of Voice, Excessive Sweating, Fatigue, Flushing, Heat Intolorance, Increase in Ring/Shoe/Hat Size, Palpitations, Polydipsia, Polyphagia, Polyuria, Other - Hematologic/Lymphatic Hematologic: absent: As Per HPI, Easy Bleeding, Easy Bruising, Lymphadenopathy, Other Past Patient History - Infectious Disease Hx of Infectious Diseases: None - Past Medical History & Family History Past Medical History?: Yes - Past Social History Smoking Status: Never Smoked - CARDIAC Hx Congestive Heart Failure: Yes Hx Hypertension: Yes - PULMONARY Hx Sleep Apnea: Yes - NEUROLOGICAL Hx Neurological Disorder: No - HEENT Hx HEENT Problems: No - RENAL Hx Chronic Kidney Disease: No - ENDOCRINE/METABOLIC Hx Endocrine Disorders: No - HEMATOLOGICAL/ONCOLOGICAL Hx Anemia: Yes - INTEGUMENTARY Hx Dermatological Problems: No - MUSCULOSKELETAL/RHEUMATOLOGICAL Hx Arthritis: Yes (KNEE, HIP, BACK) Hx Rheumatoid Arthritis: Yes - GASTROINTESTINAL Hx Gastrointestinal Disorders: Yes Hx Bowel Surgery: Yes - GENITOURINARY/GYNECOLOGICAL Hx Genitourinary Disorders: No - PSYCHIATRIC Hx Substance Use: No (PAST USE) - SURGICAL HISTORY Hx Surgeries: Yes Other/Comment: Gastric Sleeve, R subclavian POC - ANESTHESIA Hx Anesthesia: Yes Hx Anesthesia Reactions: No Meds Allergies/Adverse Reactions: Allergies Allergy/AdvReac Type Severity Reaction Status Date / Time Iodine and Iodide Containing Allergy Intermediate RASH Verified 05/19/15 11:58 Produc shrimp Allergy Intermediate SWELLING Verified 05/19/15 17:56 carafate Allergy NAUSEA Uncoded 10/08/13 02:32 seafood Allergy ANAPHYLAXIS Uncoded 03/07/17 00:20 - Medications Medications: Current Medications Enoxaparin Sodium (Lovenox) 40 mg SC DAILY [facility] Last Admin: 09/26/17 09:19 Dose: Not Given Furosemide (Lasix) 40 mg PO BID [facility] Last Admin: 09/26/17 09:16 Dose: 40 mg Piperacillin Sod/Tazobactam Sod (Zosyn 3.375 Gm Iv Premix) 3.375 gm in 50 mls @ 100 mls/hr IVPB Q6H [facility] PRN Reason: Protocol Last Admin: 09/26/17 07:24 Dose: Not Given Vancomycin/Sodium Chloride (Vancomycin 1 Gm/Ns 200 Ml) 1 gm in 200 mls @ 133.333 mls/hr IVPB Q24H [facility] PRN Reason: Protocol Stop: 09/30/17 14:16 Last Admin: 09/25/17 14:45 Dose: Not Given Morphine Sulfate (Morphine Extended Release Tab) 60 mg PO Q12H [facility] Last Admin: 09/26/17 00:25 Dose: 60 mg Oxycodone HCl (Oxycodone Immediate Release Tab) 30 mg PO Q8H PRN PRN Reason: Pain, severe (8-10) Last Admin: 09/25/17 17:57 Dose: 30 mg Pantoprazole Sodium (Protonix Ec Tab) 40 mg PO DAILY [facility] Last Admin: 09/26/17 09:16 Dose: 40 mg Pneumococcal Polyvalent Vaccine (Pneumovax 23 Vaccine) 0.5 ml IM .ONCE ONE Stop: 09/28/17 10:01 Spironolactone (Aldactone) 25 mg PO BID [facility] Last Admin: 09/26/17 09:16 Dose: 25 mg Physical Exam - Constitutional Appears: Non-toxic, Chronically Ill - Head Exam Head Exam: NORMOCEPHALIC - Eye Exam Eye Exam: PERRL - ENT Exam ENT Exam: Mucous Membranes Dry - Neck Exam Neck exam: Negative for: Lymphadenopathy - Respiratory Exam Respiratory Exam: Decreased Breath Sounds - Cardiovascular Exam Cardiovascular Exam: REGULAR RHYTHM - GI/Abdominal Exam GI & Abdominal Exam: Diminished Bowel Sounds - Rectal Exam Rectal Exam: Deferred - Exam Exam: NORMAL INSPECTION - Extremities Exam Extremities exam: Negative for: pedal edema - Back Exam Back exam: absent: CVA tenderness (L), CVA tenderness (R) - Neurological Exam Neurological exam: Alert, CN II-XII Intact, Oriented x3, Reflexes Normal - Psychiatric Exam Psychiatric exam: Depressed - Skin Skin Exam: Dry, Intact Additional comments: swelling redness lower extremities multiple ulcers left > right min drainage Results - Vital Signs Recent Vital Signs: Last Vital Signs Temp 98.5 F 09/26/17 08:00 Pulse 93 H 09/26/17 08:00 Resp 20 09/26/17 08:00 BP 144/70 09/26/17 09:16 Pulse Ox 99 09/26/17 08:00 - Labs Result Diagrams: 09/26/17 07:10 09/26/17 07:10 Labs: Laboratory Results - last 24 hr 09/25/17 09/25/17 09/25/17 02:52 11:40 14:56 WBC RBC Hgb Hct MCV MCH MCHC RDW Plt Count MPV Neut % (Auto) Lymph % (Auto) [place] % (Auto) Eos % (Auto) Baso % (Auto) Neut # (Auto) Lymph # (Auto) [place] # (Auto) Eos # (Auto) Baso # (Auto) Sodium 143 Potassium 4.3 Chloride 108 H Carbon Dioxide 28 Anion Gap 11 BUN 12 Creatinine 0.8 Est GFR ( Amer) > 60 Est GFR (Non-Af Amer) > 60 Random Glucose 99 Hemoglobin A1c 5.9 Calcium 8.4 L Phosphorus Magnesium Total Bilirubin 0.4 AST 44 ALT 43 Alkaline Phosphatase 119 C-Reactive Protein 45.70 H Total Protein 7.1 Albumin 3.3 L Globulin 3.8 Albumin/Globulin Ratio 0.9 L Triglycerides 130 D Cholesterol 141 LDL Cholesterol Direct 63 HDL Cholesterol 31 Urine Color Yellow Urine Clarity Clear Urine pH 5.0 Ur Specific [place] 1.015 Urine Protein Negative Urine Glucose (UA) Normal Urine Ketones Negative Urine Blood Negative Urine Nitrate Negative Urine Bilirubin Negative Urine Urobilinogen 2.0 Ur Leukocyte Esterase Neg Urine WBC (Auto) < 1 Urine RBC (Auto) 1 09/26/17 09/26/17 07:10 07:10 WBC 4.7 L RBC 4.82 Hgb 12.3 Hct 37.7 MCV 78.2 L MCH 25.5 L MCHC 32.6 L RDW 17.7 H Plt Count 278 MPV 7.3 Neut % (Auto) 41.1 L Lymph % (Auto) 41.3 H [place] % (Auto) 10.0 Eos % (Auto) 7.2 H Baso % (Auto) 0.4 Neut # (Auto) 1.9 Lymph # (Auto) 1.9 [place] # (Auto) 0.5 Eos # (Auto) 0.3 Baso # (Auto) 0.0 Sodium 145 Potassium 3.8 Chloride 109 H Carbon Dioxide 27 Anion Gap 13 BUN 10 Creatinine 0.9 Est GFR ( Amer) > 60 Est GFR (Non-Af Amer) > 60 Random Glucose 108 Hemoglobin A1c Calcium 8.3 L Phosphorus 3.4 Magnesium 1.8 Total Bilirubin 0.6 AST 48 ALT 35 Alkaline Phosphatase 102 C-Reactive Protein Total Protein 6.6 Albumin 3.1 L Globulin 3.6 Albumin/Globulin Ratio 0.9 L Triglycerides Cholesterol LDL Cholesterol Direct HDL Cholesterol Urine Color Urine Clarity Urine pH Ur Specific [place] Urine Protein Urine Glucose (UA) Urine Ketones Urine Blood Urine Nitrate Urine Bilirubin Urine Urobilinogen Ur Leukocyte Esterase Urine WBC (Auto) Urine RBC (Auto) Assessment & Plan (1) Ulcers of both lower extremities, limited to breakdown of skin Status: Acute (2) Venous stasis dermatitis of both lower extremities Status: Acute (3) Morbid obesity Status: Acute (4) Peripheral edema Status: Acute - Assessment and Plan (Free Text) Assessment: will check cultures cont wound care iv antibiotics
[2017-09-26] MEDS: oxyCODONE 30 mg Immediate Release Tab PO PRN ×2 (12:52→21:23)
[2017-09-26] MEDS: Vancomycin 1 gm/NS 200 ml 1 GM/200 ML BAG IVPB SCH (13:33)
--- NOTE | 2017-09-26 15:03 | CP.PCM.CON ---
History of Present Illness - History of Present Illness History of Present Illness: Podiatry Consult Note: Dr. Avilez 57 year old male with PMHx of obesity, HTN, DM was seen and evaluated at bedside for bilateral LE wounds. Patient reports that he follows up with Dr. Avilez in his office but was not able to do so in the past year. Reports that he was performing his dressing changes at home. States that he recently felt sudden pain in his legs and decided to come to the ER. Reports that he also noticed drainage from the wound. Reports that he works out and believes that he got the wound on the left leg open from the dressing rubbing on it. Reports that he may have had a little F before coming to the hospital. Denies of N/V/C/ SOB/CP/headache. Denies of any other pedal complains at this time. PMHx: obesity, HTN, DM PSHx: Gastric sleeve Allergies: Iodine Social: No ETOH/tobacco/drugs Review of Systems - Constitutional Constitutional: As Per HPI Past Patient History - Infectious Disease Hx of Infectious Diseases: None - Past Medical History & Family History Past Medical History?: Yes - Past Social History Smoking Status: Never Smoked - CARDIAC Hx Congestive Heart Failure: Yes Hx Hypertension: Yes - PULMONARY Hx Sleep Apnea: Yes - NEUROLOGICAL Hx Neurological Disorder: No - HEENT Hx HEENT Problems: No - RENAL Hx Chronic Kidney Disease: No - ENDOCRINE/METABOLIC Hx Endocrine Disorders: No - HEMATOLOGICAL/ONCOLOGICAL Hx Anemia: Yes - INTEGUMENTARY Hx Dermatological Problems: No - MUSCULOSKELETAL/RHEUMATOLOGICAL Hx Arthritis: Yes (KNEE, HIP, BACK) Hx Rheumatoid Arthritis: Yes - GASTROINTESTINAL Hx Gastrointestinal Disorders: Yes Hx Bowel Surgery: Yes - GENITOURINARY/GYNECOLOGICAL Hx Genitourinary Disorders: No - PSYCHIATRIC Hx Substance Use: No (PAST USE) - SURGICAL HISTORY Hx Surgeries: Yes Other/Comment: Gastric Sleeve, R subclavian POC - ANESTHESIA Hx Anesthesia: Yes Hx Anesthesia Reactions: No Meds Allergies/Adverse Reactions: Allergies Allergy/AdvReac Type Severity Reaction Status Date / Time Iodine and Iodide Containing Allergy Intermediate RASH Verified 05/19/15 11:58 Produc shrimp Allergy Intermediate SWELLING Verified 05/19/15 17:56 carafate Allergy NAUSEA Uncoded 10/08/13 02:32 seafood Allergy ANAPHYLAXIS Uncoded 03/07/17 00:20 - Medications Medications: Current Medications Enoxaparin Sodium (Lovenox) 40 mg SC DAILY [facility] Last Admin: 09/26/17 09:19 Dose: Not Given Furosemide (Lasix) 40 mg PO BID [facility] Last Admin: 09/26/17 09:16 Dose: 40 mg Piperacillin Sod/Tazobactam Sod (Zosyn 3.375 Gm Iv Premix) 3.375 gm in 50 mls @ 100 mls/hr IVPB Q6H [facility] PRN Reason: Protocol Last Admin: 09/26/17 12:53 Dose: 100 mls/hr Vancomycin/Sodium Chloride (Vancomycin 1 Gm/Ns 200 Ml) 1 gm in 200 mls @ 133.333 mls/hr IVPB Q24H [facility] PRN Reason: Protocol Stop: 09/30/17 14:16 Last Admin: 09/26/17 13:33 Dose: 133.333 mls/hr Morphine Sulfate (Morphine Extended Release Tab) 60 mg PO Q12H [facility] Last Admin: 09/26/17 11:49 Dose: 60 mg Oxycodone HCl (Oxycodone Immediate Release Tab) 30 mg PO Q8H PRN PRN Reason: Pain, severe (8-10) Last Admin: 09/26/17 12:52 Dose: 30 mg Pantoprazole Sodium (Protonix Ec Tab) 40 mg PO DAILY [facility] Last Admin: 09/26/17 09:16 Dose: 40 mg Pneumococcal Polyvalent Vaccine (Pneumovax 23 Vaccine) 0.5 ml IM .ONCE ONE Stop: 09/28/17 10:01 Spironolactone (Aldactone) 25 mg PO BID [facility] Last Admin: 09/26/17 09:16 Dose: 25 mg Physical Exam - Constitutional Appears: Well, Non-toxic, No Acute Distress - Extremities Exam Additional comments: Bilateral LE exam VASC: DP pulses are faintly palpable 1/4 b/l, PT pulses not able to palpate due to edema, Cap refill time: < 3 sec to all digits, Temp gradient: warm to cool from proximal to distal, diffuse 2+ pitting edema noted distal to bilateral knee joint DERM: Superficial wound measuring approx 6.0 cm x 5.5 cm x 0.1 cm noted on the lateral aspect of the left leg, wound base is mainly grannular with active bleeding, no malodor, no purulence, no probe to bone, no tunneling, no tracking , no clinical suspicion of active infection, no open wounds on the right side noted NEURO: Protective sensation grossly intact ORTHO: Pain on palpation of the wound site - Neurological Exam Neurological exam: Alert, Oriented x3 - Psychiatric Exam Psychiatric exam: Normal Affect, Normal Mood Results - Vital Signs Recent Vital Signs: Last Vital Signs Temp 98.5 F 09/26/17 08:00 Pulse 93 H 09/26/17 08:00 Resp 20 09/26/17 08:00 BP 144/70 09/26/17 09:16 Pulse Ox 99 09/26/17 08:00 - Labs Result Diagrams: 09/26/17 07:10 09/26/17 07:10 Labs: Laboratory Results - last 24 hr 09/25/17 09/26/17 09/26/17 14:56 07:10 07:10 WBC 4.7 L RBC 4.82 Hgb 12.3 Hct 37.7 MCV 78.2 L MCH 25.5 L MCHC 32.6 L RDW 17.7 H Plt Count 278 MPV 7.3 Neut % (Auto) 41.1 L Lymph % (Auto) 41.3 H [place] % (Auto) 10.0 Eos % (Auto) 7.2 H Baso % (Auto) 0.4 Neut # (Auto) 1.9 Lymph # (Auto) 1.9 [place] # (Auto) 0.5 Eos # (Auto) 0.3 Baso # (Auto) 0.0 Sodium 145 Potassium 3.8 Chloride 109 H Carbon Dioxide 27 Anion Gap 13 BUN 10 Creatinine 0.9 Est GFR ( Amer) > 60 Est GFR (Non-Af Amer) > 60 Random Glucose 108 Calcium 8.3 L Phosphorus 3.4 Magnesium 1.8 Total Bilirubin 0.6 AST 48 ALT 35 Alkaline Phosphatase 102 Total Protein 6.6 Albumin 3.1 L Globulin 3.6 Albumin/Globulin Ratio 0.9 L Urine Color Yellow Urine Clarity Clear Urine pH 5.0 Ur Specific [place] 1.015 Urine Protein Negative Urine Glucose (UA) Normal Urine Ketones Negative Urine Blood Negative Urine Nitrate Negative Urine Bilirubin Negative Urine Urobilinogen 2.0 Ur Leukocyte Esterase Neg Urine WBC (Auto) < 1 Urine RBC (Auto) 1 Assessment & Plan - Assessment and Plan (Free Text) Assessment: 57 year old make with PMHx of obesity, HTN, DM was evaluated at bedside for left leg wound secondary to lymphedema Plan: Patient seen and evaluated Discussed plan with attending Dr. Avilez Labs, vitals and charts reviewed - afebrile, no leukocytosis Wound culture - G negative rods Blood Cx: G+ cocci Wound cleaned with saline and dressing applied using xeroform, ABD, EVELYN Continue IV abx as per ID - Vancomycin, zosyn PICC line in place Thank you for the podiatry consult and allowing to take part in patient care Podiatry will follow patient pablo in-house - Date & Time Date: 09/26/17 Time: 15:11
[2017-09-27] MEDS: Morphine 30 mg SR Tab PO SCH ×3 (00:30→12:28)
[2017-09-27] MEDS: Piperacill/Tazo 3.375gm in Dex 3.375 GM/50 ML BAG IVPB SCH ×4 (00:43→18:01)
--- NOTE | 2017-09-27 10:32 | RAD ---
HISTORY: NO BLOOD RETURN FROM PICC, PICC REPOSITIONING. COMPARISON: Chest x-ray 09/27/2017 FINDINGS: LUNGS: No pulmonary disease. PLEURA: No pleural effusion identified, no pneumothorax. CARDIOVASCULAR: Cardiomediastinal silhouette is unchanged. OSSEOUS STRUCTURES: Unchanged. VISUALIZED UPPER ABDOMEN: Normal. OTHER FINDINGS: New left upper extremity PICC with catheter tip in the proximal SVC. Right IJV port. IMPRESSION: Exchange of existing left arm PICC with new PICC position with tip in the superior vena cava. The PICC may be used.
[2017-09-27] MEDS: Pantoprazole 40 mg EC Tab PO SCH (10:35)
[2017-09-27] MEDS: Enoxaparin 40 mg Syringe SC SCH (10:35)
[2017-09-27] MEDS: oxyCODONE 30 mg Immediate Release Tab PO PRN ×2 (10:40→22:06)
--- NOTE | 2017-09-27 12:22 | CP.PCM.PN ---
Subjective - Date & Time of Evaluation Date of Evaluation: 09/27/17 Time of Evaluation: 12:19 - Subjective Subjective: Surgery: Dr. Tariq Pt seen and examined. No acute events overnight. Objective - Vital Signs/Intake and Output Vital Signs (last 24 hours): Temp Pulse Resp BP Pulse Ox 97.9 F 98 H 20 137/76 99 09/27/17 00:00 09/27/17 00:00 09/27/17 00:00 09/27/17 10:35 09/27/17 00:00 Intake and Output: 09/27/17 09/27/17 06:59 18:59 Intake Total 550 600 Balance 550 600 - Medications Medications: Current Medications Enoxaparin Sodium (Lovenox) 40 mg SC DAILY [facility] Last Admin: 09/27/17 10:35 Dose: 40 mg Furosemide (Lasix) 40 mg PO BID [facility] Last Admin: 09/27/17 10:35 Dose: 40 mg Piperacillin Sod/Tazobactam Sod (Zosyn 3.375 Gm Iv Premix) 3.375 gm in 50 mls @ 100 mls/hr IVPB Q6H [facility] PRN Reason: Protocol Last Admin: 09/27/17 06:23 Dose: 100 mls/hr Vancomycin/Sodium Chloride (Vancomycin 1 Gm/Ns 200 Ml) 1 gm in 200 mls @ 133.333 mls/hr IVPB Q24H [facility] PRN Reason: Protocol Stop: 09/30/17 14:16 Last Admin: 09/26/17 13:33 Dose: 133.333 mls/hr Morphine Sulfate (Morphine Extended Release Tab) 60 mg PO Q12H [facility] Last Admin: 09/27/17 02:31 Dose: 60 mg Oxycodone HCl (Oxycodone Immediate Release Tab) 30 mg PO Q8H PRN PRN Reason: Pain, severe (8-10) Last Admin: 09/27/17 10:40 Dose: 30 mg Pantoprazole Sodium (Protonix Ec Tab) 40 mg PO DAILY [facility] Last Admin: 09/27/17 10:35 Dose: 40 mg Pneumococcal Polyvalent Vaccine (Pneumovax 23 Vaccine) 0.5 ml IM .ONCE ONE Stop: 09/28/17 10:01 Spironolactone (Aldactone) 25 mg PO BID [facility] Last Admin: 09/27/17 10:35 Dose: 25 mg - Labs Labs: 09/26/17 07:10 09/26/17 07:10 - Constitutional Appears: Non-toxic, No Acute Distress - Head Exam Head Exam: NORMOCEPHALIC - Eye Exam Eye Exam: EOMI - ENT Exam ENT Exam: Mucous Membranes Moist - Neck Exam Neck Exam: Full ROM - Respiratory Exam Respiratory Exam: NORMAL BREATHING PATTERN. absent: Accessory Muscle Use, Respiratory Distress - GI/Abdominal Exam GI & Abdominal Exam: Soft. absent: Distended, Firm, Guarding, Rigid, Tenderness - Extremities Exam Additional comments: B/L LE edema from calf to foot with erythema, warm to touch, and serous drainage - Neurological Exam Neurological Exam: Alert, Awake, Oriented x3 - Psychiatric Exam Psychiatric exam: Normal Affect, Normal Mood Assessment and Plan - Assessment and Plan (Free Text) Assessment: 57M w. B/L LE cellulitis -c/w local wound care and compression -keep legs elevated -no plans for surgical intervention -please re-consult if needed -d/w attending Zemaitis PGY4
--- NOTE | 2017-09-27 12:30 | CP.PCM.PN ---
Subjective - Date & Time of Evaluation Date of Evaluation: 09/27/17 Time of Evaluation: 12:27 - Subjective Subjective: Podiatry Progress note: Dr. Avilez 57 year old male was seen and evaluated at bedside for left LE wound. Patient is AAOx3 and appears well. Complains of non-medical issues. Denies of any acute overnight events. Denies of recent F/N/V/C/SOB/CP/headache. Denies of any other pedal complains at this time. Objective - Vital Signs/Intake and Output Vital Signs (last 24 hours): Temp Pulse Resp BP Pulse Ox 97.9 F 98 H 20 137/76 99 09/27/17 00:00 09/27/17 00:00 09/27/17 00:00 09/27/17 10:35 09/27/17 00:00 Intake and Output: 09/27/17 09/27/17 06:59 18:59 Intake Total 550 600 Balance 550 600 - Medications Medications: Current Medications Enoxaparin Sodium (Lovenox) 40 mg SC DAILY [facility] Last Admin: 09/27/17 10:35 Dose: 40 mg Furosemide (Lasix) 40 mg PO BID [facility] Last Admin: 09/27/17 10:35 Dose: 40 mg Piperacillin Sod/Tazobactam Sod (Zosyn 3.375 Gm Iv Premix) 3.375 gm in 50 mls @ 100 mls/hr IVPB Q6H [facility] PRN Reason: Protocol Last Admin: 09/27/17 06:23 Dose: 100 mls/hr Vancomycin/Sodium Chloride (Vancomycin 1 Gm/Ns 200 Ml) 1 gm in 200 mls @ 133.333 mls/hr IVPB Q24H [facility] PRN Reason: Protocol Stop: 09/30/17 14:16 Last Admin: 09/26/17 13:33 Dose: 133.333 mls/hr Morphine Sulfate (Morphine Extended Release Tab) 60 mg PO Q12H [facility] Last Admin: 09/27/17 02:31 Dose: 60 mg Oxycodone HCl (Oxycodone Immediate Release Tab) 30 mg PO Q8H PRN PRN Reason: Pain, severe (8-10) Last Admin: 09/27/17 10:40 Dose: 30 mg Pantoprazole Sodium (Protonix Ec Tab) 40 mg PO DAILY [facility] Last Admin: 09/27/17 10:35 Dose: 40 mg Pneumococcal Polyvalent Vaccine (Pneumovax 23 Vaccine) 0.5 ml IM .ONCE ONE Stop: 09/28/17 10:01 Spironolactone (Aldactone) 25 mg PO BID [facility] Last Admin: 09/27/17 10:35 Dose: 25 mg - Labs Labs: 09/26/17 07:10 09/26/17 07:10 - Constitutional Appears: Well, Non-toxic, No Acute Distress - Extremities Exam Additional comments: Bilateral LE exam VASC: DP pulses are faintly palpable 1/4 b/l, PT pulses not able to palpate due to edema, Cap refill time: < 3 sec to all digits, Temp gradient: warm to cool from proximal to distal, diffuse 2+ pitting edema noted distal to bilateral knee joint DERM: Superficial wound measuring approx 6.0 cm x 5.5 cm x 0.1 cm noted on the lateral aspect of the left leg, wound base is mainly grannular with active bleeding, no malodor, no purulence, no probe to bone, no tunneling, no tracking , no clinical suspicion of active infection, bilateral LE appears to have tree trunk type appearance, no open wounds on the right side noted NEURO: Protective sensation grossly intact ORTHO: Pain on palpation of the wound site - Neurological Exam Neurological Exam: Alert, Awake, Oriented x3 - Psychiatric Exam Psychiatric exam: Normal Affect, Normal Mood Assessment and Plan - Assessment and Plan (Free Text) Assessment: 57 year old male evaluated for left leg wound secondary to lymphedema Plan: Patient seen and evaluated Discussed plan with attending Dr. Avilez Labs, vitals and charts reviewed - afebrile, no leukocytosis as of yesterday Wound culture - E.coli, proteus mirabilis Blood Cx: Staph. aureus Wound cleaned with saline and dressing applied using xeroform, ABD, EVELYN Continue IV abx as per ID - Vancomycin, zosyn PICC line in place Upon discharge, please follow up with Dr. Avilez in his office for further wound care Podiatry will follow patient pablo in-house
--- NOTE | 2017-09-27 13:22 | CP.PCM.PN ---
Subjective - Date & Time of Evaluation Date of Evaluation: 09/27/17 Time of Evaluation: 13:20 - Subjective Subjective: pt seen and examined leg dressing changed as per pt more cleane Objective - Vital Signs/Intake and Output Vital Signs (last 24 hours): Temp Pulse Resp BP Pulse Ox 97.9 F 98 H 20 137/76 99 09/27/17 00:00 09/27/17 00:00 09/27/17 00:00 09/27/17 10:35 09/27/17 00:00 Intake and Output: 09/27/17 09/27/17 06:59 18:59 Intake Total 550 600 Balance 550 600 - Medications Medications: Current Medications Enoxaparin Sodium (Lovenox) 40 mg SC DAILY [facility] Last Admin: 09/27/17 10:35 Dose: 40 mg Furosemide (Lasix) 40 mg PO BID [facility] Last Admin: 09/27/17 10:35 Dose: 40 mg Piperacillin Sod/Tazobactam Sod (Zosyn 3.375 Gm Iv Premix) 3.375 gm in 50 mls @ 100 mls/hr IVPB Q6H [facility] PRN Reason: Protocol Last Admin: 09/27/17 06:23 Dose: 100 mls/hr Vancomycin/Sodium Chloride (Vancomycin 1 Gm/Ns 200 Ml) 1 gm in 200 mls @ 133.333 mls/hr IVPB Q24H [facility] PRN Reason: Protocol Stop: 09/30/17 14:16 Last Admin: 09/26/17 13:33 Dose: 133.333 mls/hr Morphine Sulfate (Morphine Extended Release Tab) 60 mg PO Q12H [facility] Last Admin: 09/27/17 12:28 Dose: 60 mg Oxycodone HCl (Oxycodone Immediate Release Tab) 30 mg PO Q8H PRN PRN Reason: Pain, severe (8-10) Last Admin: 09/27/17 10:40 Dose: 30 mg Pantoprazole Sodium (Protonix Ec Tab) 40 mg PO DAILY [facility] Last Admin: 09/27/17 10:35 Dose: 40 mg Pneumococcal Polyvalent Vaccine (Pneumovax 23 Vaccine) 0.5 ml IM .ONCE ONE Stop: 09/28/17 10:01 Spironolactone (Aldactone) 25 mg PO BID [facility] Last Admin: 09/27/17 10:35 Dose: 25 mg - Labs Labs: 09/26/17 07:10 09/26/17 07:10 - Constitutional Appears: Non-toxic - Head Exam Head Exam: NORMAL INSPECTION - ENT Exam ENT Exam: Mucous Membranes Moist - Neck Exam Neck Exam: Normal Inspection - Back Exam Back Exam: NORMAL INSPECTION - Neurological Exam Neurological Exam: Normal Gait - Psychiatric Exam Psychiatric exam: Normal Affect - Skin Skin Exam: Normal Color Additional comments: dry skin Assessment and Plan - Assessment and Plan (Free Text) Assessment: infected leg ulcers multiple organidms on iv antibiotics and wound care Plan: cont current treatment
[2017-09-27] MEDS: Vancomycin 1 gm/NS 200 ml 1 GM/200 ML BAG IVPB SCH (14:00)
--- NOTE | 2017-09-27 14:50 | CP.PCM.PN ---
Subjective - Date & Time of Evaluation Date of Evaluation: 09/27/17 Time of Evaluation: 07:00 - Subjective Subjective: c/o pain awake alert Objective - Vital Signs/Intake and Output Vital Signs (last 24 hours): Temp Pulse Resp BP Pulse Ox 97.9 F 98 H 20 137/76 99 09/27/17 00:00 09/27/17 00:00 09/27/17 00:00 09/27/17 10:35 09/27/17 00:00 Intake and Output: 09/27/17 09/27/17 06:59 18:59 Intake Total 550 600 Balance 550 600 - Medications Medications: Current Medications Enoxaparin Sodium (Lovenox) 40 mg SC DAILY [facility] Last Admin: 09/27/17 10:35 Dose: 40 mg Furosemide (Lasix) 40 mg PO BID [facility] Last Admin: 09/27/17 10:35 Dose: 40 mg Piperacillin Sod/Tazobactam Sod (Zosyn 3.375 Gm Iv Premix) 3.375 gm in 50 mls @ 100 mls/hr IVPB Q6H [facility] PRN Reason: Protocol Last Admin: 09/27/17 13:52 Dose: 100 mls/hr Vancomycin/Sodium Chloride (Vancomycin 1 Gm/Ns 200 Ml) 1 gm in 200 mls @ 133.333 mls/hr IVPB Q24H [facility] PRN Reason: Protocol Stop: 09/30/17 14:16 Last Admin: 09/27/17 14:00 Dose: 133.333 mls/hr Morphine Sulfate (Morphine Extended Release Tab) 60 mg PO Q12H [facility] Last Admin: 09/27/17 12:28 Dose: 60 mg Oxycodone HCl (Oxycodone Immediate Release Tab) 30 mg PO Q8H PRN PRN Reason: Pain, severe (8-10) Last Admin: 09/27/17 10:40 Dose: 30 mg Pantoprazole Sodium (Protonix Ec Tab) 40 mg PO DAILY [facility] Last Admin: 09/27/17 10:35 Dose: 40 mg Pneumococcal Polyvalent Vaccine (Pneumovax 23 Vaccine) 0.5 ml IM .ONCE ONE Stop: 09/28/17 10:01 Spironolactone (Aldactone) 25 mg PO BID [facility] Last Admin: 09/27/17 10:35 Dose: 25 mg - Labs Labs: 09/26/17 07:10 09/26/17 07:10 - Constitutional Appears: Non-toxic, Chronically Ill - Head Exam Head Exam: NORMOCEPHALIC - Eye Exam Eye Exam: PERRL - ENT Exam ENT Exam: Mucous Membranes Dry - Neck Exam Neck Exam: absent: Lymphadenopathy - Respiratory Exam Respiratory Exam: Decreased Breath Sounds - Cardiovascular Exam Cardiovascular Exam: REGULAR RHYTHM - GI/Abdominal Exam GI & Abdominal Exam: Distended - Rectal Exam Rectal Exam: Deferred - Exam Exam: NORMAL INSPECTION - Extremities Exam Extremities Exam: Pedal Edema, Tenderness - Back Exam Back Exam: absent: CVA tenderness (L), CVA tenderness (R) Assessment and Plan (1) Ulcers of both lower extremities, limited to breakdown of skin Status: Acute (2) Venous stasis dermatitis of both lower extremities Status: Acute (3) Morbid obesity Status: Acute (4) Peripheral edema Status: Acute - Assessment and Plan (Free Text) Assessment: cont iv rx may need SCAR
[2017-09-28] MEDS: Morphine 30 mg SR Tab PO SCH ×3 (00:29→23:55)
[2017-09-28] MEDS: Piperacill/Tazo 3.375gm in Dex 3.375 GM/50 ML BAG IVPB SCH ×4 (00:45→19:26)
[2017-09-28] MEDS: oxyCODONE 30 mg Immediate Release Tab PO PRN ×2 (09:56→17:50)
[2017-09-28] MEDS: Pantoprazole 40 mg EC Tab PO SCH (09:56)
[2017-09-28] MEDS ORDERED: Pneumococcal 23-Valent Vaccine IM ONE (10:00)
[2017-09-28] MEDS: Enoxaparin 40 mg Syringe SC SCH (10:01)
[2017-09-28] MEDS ORDERED: Morphine 30 mg SR Tab PO SCH ×2 (14:02→20:00)
[2017-09-28] MEDS: Vancomycin 1 gm/NS 200 ml 1 GM/200 ML BAG IVPB SCH ×2 (14:05→19:32)
--- NOTE | 2017-09-28 15:06 | CP.PCM.PN ---
Subjective - Date & Time of Evaluation Date of Evaluation: 09/28/17 Time of Evaluation: 15:03 - Subjective Subjective: Podiatry Progress note: Dr. Avilez 57 year old male was seen and evaluated at bedside with attending Dr. Avilez for left LE wound. Denies of any acute overnight events. Patient is AAOx3 and appears well. Denies of recent F/N/V/C/SOB/CP/headache. Denies of any other pedal complains at this time. Objective - Vital Signs/Intake and Output Vital Signs (last 24 hours): Temp Pulse Resp BP Pulse Ox 98.1 F 80 20 118/72 96 09/28/17 08:00 09/28/17 08:00 09/28/17 08:00 09/28/17 09:55 09/28/17 08:00 Intake and Output: 09/28/17 09/28/17 06:59 18:59 Intake Total 850 Balance 850 - Medications Medications: Current Medications Enoxaparin Sodium (Lovenox) 40 mg SC DAILY [facility] Last Admin: 09/28/17 10:01 Dose: Not Given Furosemide (Lasix) 40 mg PO BID [facility] Last Admin: 09/28/17 09:55 Dose: 40 mg Piperacillin Sod/Tazobactam Sod (Zosyn 3.375 Gm Iv Premix) 3.375 gm in 50 mls @ 100 mls/hr IVPB Q6H [facility] PRN Reason: Protocol Last Admin: 09/28/17 14:07 Dose: 100 mls/hr Vancomycin/Sodium Chloride (Vancomycin 1 Gm/Ns 200 Ml) 1 gm in 200 mls @ 133.333 mls/hr IVPB Q24H [facility] PRN Reason: Protocol Stop: 09/30/17 14:16 Last Admin: 09/28/17 14:05 Dose: 133.333 mls/hr Morphine Sulfate (Morphine Extended Release Tab) 60 mg PO Q12H [facility] Oxycodone HCl (Oxycodone Immediate Release Tab) 30 mg PO Q6H PRN PRN Reason: Pain, severe (8-10) Pantoprazole Sodium (Protonix Ec Tab) 40 mg PO DAILY [facility] Last Admin: 09/28/17 09:56 Dose: 40 mg Spironolactone (Aldactone) 25 mg PO BID [facility] Last Admin: 09/28/17 09:55 Dose: 25 mg - Labs Labs: 07/10/18 07:10 09/26/17 07:10 - Constitutional Appears: Well, Non-toxic, No Acute Distress - Extremities Exam Additional comments: Bilateral LE exam VASC: DP pulses are faintly palpable 1/4 b/l, PT pulses not able to palpate due to edema, Cap refill time: < 3 sec to all digits, Temp gradient: warm to cool from proximal to distal, diffuse 1+ pitting edema noted distal to bilateral knee joint DERM: Superficial wound measuring approx 6.0 cm x 5.5 cm x 0.1 cm noted on the lateral aspect of the left leg, wound base is mainly grannular with active bleeding, no malodor, no purulence, no probe to bone, no tunneling, no tracking , no clinical suspicion of active infection, bilateral LE appears to have tree trunk type appearance, no open wounds on the right side noted NEURO: Protective sensation grossly intact ORTHO: Pain on palpation of the wound site - Neurological Exam Neurological Exam: Alert, Awake, Oriented x3 - Psychiatric Exam Psychiatric exam: Normal Affect, Normal Mood Assessment and Plan - Assessment and Plan (Free Text) Assessment: 57 year old male evaluated for left leg wound secondary to lymphedema Plan: Patient seen and evaluated with attending Dr. Avilez Labs, vitals and charts reviewed - afebrile, no leukocytosis Wound culture - E.coli, proteus mirabilis Blood Cx: MRSA Wound cleaned with saline and dressing applied using xeroform, ABD, EVELYN Continue IV abx as per ID - Vancomycin, zosyn PICC line in place Upon discharge, please follow up with Dr. Avilez in his office for further wound care Podiatry will follow patient pablo in-house
--- NOTE | 2017-09-28 17:40 | CP.PCM.PN ---
Subjective - Date & Time of Evaluation Date of Evaluation: 09/28/17 Time of Evaluation: 17:37 - Subjective Subjective: pt feels cold blood culture postive MRSA Objective - Vital Signs/Intake and Output Vital Signs (last 24 hours): Temp Pulse Resp BP Pulse Ox 98.1 F 91 H 20 170/87 H 98 09/28/17 16:00 09/28/17 16:00 09/28/17 16:00 09/28/17 16:00 09/28/17 16:00 Intake and Output: 09/28/17 09/28/17 06:59 18:59 Intake Total 850 Balance 850 - Medications Medications: Current Medications Enoxaparin Sodium (Lovenox) 40 mg SC DAILY [facility] Last Admin: 09/28/17 10:01 Dose: Not Given Furosemide (Lasix) 40 mg PO BID [facility] Last Admin: 09/28/17 09:55 Dose: 40 mg Piperacillin Sod/Tazobactam Sod (Zosyn 3.375 Gm Iv Premix) 3.375 gm in 50 mls @ 100 mls/hr IVPB Q6H [facility] PRN Reason: Protocol Last Admin: 09/28/17 14:07 Dose: 100 mls/hr Vancomycin/Sodium Chloride (Vancomycin 1 Gm/Ns 200 Ml) 1 gm in 200 mls @ 133.333 mls/hr IVPB Q24H [facility] PRN Reason: Protocol Stop: 09/30/17 14:16 Last Admin: 09/28/17 14:05 Dose: 133.333 mls/hr Morphine Sulfate (Morphine Extended Release Tab) 60 mg PO Q12H [facility] Oxycodone HCl (Oxycodone Immediate Release Tab) 30 mg PO Q6H PRN PRN Reason: Pain, severe (8-10) Pantoprazole Sodium (Protonix Ec Tab) 40 mg PO DAILY [facility] Last Admin: 09/28/17 09:56 Dose: 40 mg Spironolactone (Aldactone) 25 mg PO BID [facility] Last Admin: 09/28/17 09:55 Dose: 25 mg - Labs Labs: 09/26/17 07:10 09/26/17 07:10 - Constitutional Appears: In Acute Distress - Head Exam Head Exam: NORMOCEPHALIC - Eye Exam Eye Exam: EOMI, Normal appearance Pupil Exam: NORMAL ACCOMODATION - ENT Exam ENT Exam: Normal Exam - Neck Exam Neck Exam: Full ROM - Respiratory Exam Respiratory Exam: Clear to Ausculation Bilateral - Cardiovascular Exam Cardiovascular Exam: REGULAR RHYTHM - GI/Abdominal Exam GI & Abdominal Exam: Normal Bowel Sounds - Rectal Exam Rectal Exam: NORMAL INSPECTION - Exam Exam: NORMAL INSPECTION External exam: NORMAL EXTERNAL EXAM - Extremities Exam Additional comments: clcer and infection and sasis dermatitis - Back Exam Back Exam: NORMAL INSPECTION - Neurological Exam Neurological Exam: Oriented x3 - Psychiatric Exam Psychiatric exam: Normal Affect - Skin Skin Exam: Normal Color Assessment and Plan - Assessment and Plan (Free Text) Assessment: MRSA INFECTION BLOOD INFECTED ULCERS LEGS STASIS DERMATITIS Plan: CONT CURRENT ANTIBIOTICS IV AWAIT REPEATE BLOOD CULTURE
--- NOTE | 2017-09-28 17:43 | CP.PCM.PN ---
Subjective - Date & Time of Evaluation Date of Evaluation: 09/28/17 Time of Evaluation: 17:41 - Subjective Subjective: feeling cold Objective - Vital Signs/Intake and Output Vital Signs (last 24 hours): Temp Pulse Resp BP Pulse Ox 98.1 F 91 H 20 170/87 H 98 09/28/17 16:00 09/28/17 16:00 09/28/17 16:00 09/28/17 16:00 09/28/17 16:00 Intake and Output: 09/28/17 09/28/17 06:59 18:59 Intake Total 850 Balance 850 - Medications Medications: Current Medications Enoxaparin Sodium (Lovenox) 40 mg SC DAILY [facility] Last Admin: 09/28/17 10:01 Dose: Not Given Furosemide (Lasix) 40 mg PO BID [facility] Last Admin: 09/28/17 09:55 Dose: 40 mg Piperacillin Sod/Tazobactam Sod (Zosyn 3.375 Gm Iv Premix) 3.375 gm in 50 mls @ 100 mls/hr IVPB Q6H [facility] PRN Reason: Protocol Last Admin: 09/28/17 14:07 Dose: 100 mls/hr Vancomycin/Sodium Chloride (Vancomycin 1 Gm/Ns 200 Ml) 1 gm in 200 mls @ 133.333 mls/hr IVPB Q24H [facility] PRN Reason: Protocol Stop: 09/30/17 14:16 Last Admin: 09/28/17 14:05 Dose: 133.333 mls/hr Morphine Sulfate (Morphine Extended Release Tab) 60 mg PO Q12H [facility] Oxycodone HCl (Oxycodone Immediate Release Tab) 30 mg PO Q6H PRN PRN Reason: Pain, severe (8-10) Pantoprazole Sodium (Protonix Ec Tab) 40 mg PO DAILY [facility] Last Admin: 09/28/17 09:56 Dose: 40 mg Spironolactone (Aldactone) 25 mg PO BID [facility] Last Admin: 09/28/17 09:55 Dose: 25 mg - Labs Labs: 09/26/17 07:10 09/26/17 07:10 - Constitutional Appears: Non-toxic, In Acute Distress - Head Exam Head Exam: NORMAL INSPECTION - Eye Exam Eye Exam: Normal appearance Pupil Exam: NORMAL ACCOMODATION - ENT Exam ENT Exam: Normal Exam - Neck Exam Neck Exam: Full ROM - Respiratory Exam Respiratory Exam: NORMAL BREATHING PATTERN - Cardiovascular Exam Cardiovascular Exam: REGULAR RHYTHM - GI/Abdominal Exam GI & Abdominal Exam: Normal Bowel Sounds - Exam Exam: NORMAL INSPECTION - Back Exam Back Exam: NORMAL INSPECTION - Neurological Exam Neurological Exam: Normal Gait, Oriented x3 - Psychiatric Exam Psychiatric exam: Normal Affect - Skin Skin Exam: Normal Color Assessment and Plan - Assessment and Plan (Free Text) Assessment: INFECTED ULCERS LEGS STASIS DERMATITIS mrsa infec blood Plan: cont as per orders
--- NOTE | 2017-09-28 18:39 | CP.PCM.PN ---
Subjective - Date & Time of Evaluation Date of Evaluation: 09/28/17 Time of Evaluation: 08:00 - Subjective Subjective: blood cultures + MRSA consider KARSTEN needs min 14 days iv rx Objective - Vital Signs/Intake and Output Vital Signs (last 24 hours): Temp Pulse Resp BP Pulse Ox 98.1 F 91 H 20 170/87 H 98 09/28/17 16:00 09/28/17 16:00 09/28/17 16:00 09/28/17 17:46 09/28/17 16:00 Intake and Output: 09/28/17 09/28/17 06:59 18:59 Intake Total 850 Balance 850 - Medications Medications: Current Medications Enoxaparin Sodium (Lovenox) 40 mg SC DAILY [facility] Last Admin: 09/28/17 10:01 Dose: Not Given Furosemide (Lasix) 40 mg PO BID [facility] Last Admin: 09/28/17 17:46 Dose: 40 mg Piperacillin Sod/Tazobactam Sod (Zosyn 3.375 Gm Iv Premix) 3.375 gm in 50 mls @ 100 mls/hr IVPB Q6H [facility] PRN Reason: Protocol Last Admin: 09/28/17 14:07 Dose: 100 mls/hr Vancomycin/Sodium Chloride (Vancomycin 1 Gm/Ns 200 Ml) 1 gm in 200 mls @ 133.333 mls/hr IVPB Q24H [facility] PRN Reason: Protocol Stop: 09/30/17 14:16 Last Admin: 09/28/17 14:05 Dose: 133.333 mls/hr Morphine Sulfate (Morphine Extended Release Tab) 60 mg PO Q12H [facility] Oxycodone HCl (Oxycodone Immediate Release Tab) 30 mg PO Q6H PRN PRN Reason: Pain, severe (8-10) Last Admin: 09/28/17 17:50 Dose: 30 mg Pantoprazole Sodium (Protonix Ec Tab) 40 mg PO DAILY [facility] Last Admin: 09/28/17 09:56 Dose: 40 mg Spironolactone (Aldactone) 25 mg PO BID [facility] Last Admin: 09/28/17 17:47 Dose: 25 mg - Labs Labs: 09/26/17 07:10 09/26/17 07:10 - Constitutional Appears: Non-toxic, Chronically Ill - Head Exam Head Exam: NORMOCEPHALIC - Eye Exam Eye Exam: PERRL - ENT Exam ENT Exam: Mucous Membranes Dry - Neck Exam Neck Exam: absent: Lymphadenopathy - Respiratory Exam Respiratory Exam: Decreased Breath Sounds - Cardiovascular Exam Cardiovascular Exam: REGULAR RHYTHM - GI/Abdominal Exam GI & Abdominal Exam: Distended - Rectal Exam Rectal Exam: Deferred Assessment and Plan (1) Ulcers of both lower extremities, limited to breakdown of skin Status: Acute (2) Venous stasis dermatitis of both lower extremities Status: Acute (3) Morbid obesity Status: Acute (4) Peripheral edema Status: Acute - Assessment and Plan (Free Text) Assessment: blood cultures + MRSA consider KARSTEN needs min 14 days iv rx
[2017-09-29] MEDS ORDERED: Morphine 30 mg SR Tab PO SCH (00:36)
[2017-09-29] MEDS: Piperacill/Tazo 3.375gm in Dex 3.375 GM/50 ML BAG IVPB SCH ×4 (00:53→22:20)
[2017-09-29] MEDS: Vancomycin 1 gm/NS 200 ml 1 GM/200 ML BAG IVPB SCH ×3 (02:39→18:40)
[2017-09-29] MEDS: oxyCODONE 30 mg Immediate Release Tab PO PRN ×2 (09:05→17:52)
[2017-09-29] MEDS: Pantoprazole 40 mg EC Tab PO SCH (10:22)
[2017-09-29] MEDS: Enoxaparin 40 mg Syringe SC SCH (10:23)
--- NOTE | 2017-09-29 11:08 | CP.PCM.PN ---
Subjective - Date & Time of Evaluation Date of Evaluation: 09/29/17 Time of Evaluation: 11:05 - Subjective Subjective: pt npo awite removal of old non functioning delon cath removal today has mrsa in bloob cultures Objective - Vital Signs/Intake and Output Vital Signs (last 24 hours): Temp Pulse Resp BP Pulse Ox 98.2 F 84 20 155/66 H 98 09/29/17 08:05 09/29/17 08:05 09/29/17 08:05 09/29/17 10:22 09/29/17 08:05 Intake and Output: 09/29/17 09/29/17 06:59 18:59 Intake Total 850 Output Total 350 Balance 500 - Medications Medications: Current Medications Enoxaparin Sodium (Lovenox) 40 mg SC DAILY [facility] Last Admin: 09/29/17 10:23 Dose: Not Given Furosemide (Lasix) 40 mg PO BID [facility] Last Admin: 09/29/17 10:22 Dose: 40 mg Piperacillin Sod/Tazobactam Sod (Zosyn 3.375 Gm Iv Premix) 3.375 gm in 50 mls @ 100 mls/hr IVPB Q6H [facility] PRN Reason: Protocol Last Admin: 09/29/17 06:35 Dose: 100 mls/hr Vancomycin/Sodium Chloride (Vancomycin 1 Gm/Ns 200 Ml) 1 gm in 200 mls @ 133.333 mls/hr IVPB Q8H [facility] PRN Reason: Protocol Stop: 10/03/17 18:46 Last Admin: 09/29/17 10:21 Dose: 133.333 mls/hr Morphine Sulfate (Morphine Extended Release Tab) 60 mg PO Q12H [facility] Last Admin: 09/28/17 23:55 Dose: 60 mg Oxycodone HCl (Oxycodone Immediate Release Tab) 30 mg PO Q6H PRN PRN Reason: Pain, severe (8-10) Last Admin: 09/29/17 09:05 Dose: 30 mg Pantoprazole Sodium (Protonix Ec Tab) 40 mg PO DAILY [facility] Last Admin: 09/29/17 10:22 Dose: 40 mg Spironolactone (Aldactone) 25 mg PO BID [facility] Last Admin: 09/29/17 10:23 Dose: 25 mg - Labs Labs: 09/26/17 07:10 09/26/17 07:10 - Constitutional Appears: Non-toxic - Head Exam Head Exam: NORMAL INSPECTION - Eye Exam Eye Exam: Normal appearance - ENT Exam ENT Exam: Normal Exam - Neck Exam Neck Exam: Normal Inspection - Respiratory Exam Respiratory Exam: NORMAL BREATHING PATTERN - Cardiovascular Exam Cardiovascular Exam: REGULAR RHYTHM - GI/Abdominal Exam GI & Abdominal Exam: Soft - Exam Exam: NORMAL INSPECTION - Extremities Exam Additional comments: dressing on legs changed today as per pt less infection - Back Exam Back Exam: NORMAL INSPECTION - Neurological Exam Neurological Exam: Alert, Normal Gait, Oriented x3 - Psychiatric Exam Psychiatric exam: Normal Affect - Skin Skin Exam: Normal Color Assessment and Plan - Assessment and Plan (Free Text) Assessment: infected leg ulcers MRSA INFECTION BLOOD OLD POTO CATH WILL BE REMOVED TODAY Plan: PER ORDERS
--- NOTE | 2017-09-29 11:40 | CP.PCM.PN ---
Subjective - Date & Time of Evaluation Date of Evaluation: 09/29/17 Time of Evaluation: 11:36 - Subjective Subjective: Podiatry Progress note: Dr. Avilez 57 year old male was seen and evaluated at bedside for left LE wound. Denies of any acute overnight events. Patient is AAOx3 and appears well. Denies of recent F/N/V/C/SOB/CP/headache. Denies of any other pedal complains at this time. Objective - Vital Signs/Intake and Output Vital Signs (last 24 hours): Temp Pulse Resp BP Pulse Ox 98.2 F 84 20 155/66 H 98 09/29/17 08:05 09/29/17 08:05 09/29/17 08:05 09/29/17 10:22 09/29/17 08:05 Intake and Output: 09/29/17 09/29/17 06:59 18:59 Intake Total 850 Output Total 350 Balance 500 - Medications Medications: Current Medications Enoxaparin Sodium (Lovenox) 40 mg SC DAILY [facility] Last Admin: 09/29/17 10:23 Dose: Not Given Furosemide (Lasix) 40 mg PO BID [facility] Last Admin: 09/29/17 10:22 Dose: 40 mg Piperacillin Sod/Tazobactam Sod (Zosyn 3.375 Gm Iv Premix) 3.375 gm in 50 mls @ 100 mls/hr IVPB Q6H [facility] PRN Reason: Protocol Last Admin: 09/29/17 06:35 Dose: 100 mls/hr Vancomycin/Sodium Chloride (Vancomycin 1 Gm/Ns 200 Ml) 1 gm in 200 mls @ 133.333 mls/hr IVPB Q8H [facility] PRN Reason: Protocol Stop: 10/03/17 18:46 Last Admin: 09/29/17 10:21 Dose: 133.333 mls/hr Morphine Sulfate (Morphine Extended Release Tab) 60 mg PO Q12H [facility] Last Admin: 09/28/17 23:55 Dose: 60 mg Oxycodone HCl (Oxycodone Immediate Release Tab) 30 mg PO Q6H PRN PRN Reason: Pain, severe (8-10) Last Admin: 09/29/17 09:05 Dose: 30 mg Pantoprazole Sodium (Protonix Ec Tab) 40 mg PO DAILY [facility] Last Admin: 09/29/17 10:22 Dose: 40 mg Spironolactone (Aldactone) 25 mg PO BID [facility] Last Admin: 09/29/17 10:23 Dose: 25 mg - Labs Labs: 09/26/17 07:10 09/26/17 07:10 - Constitutional Appears: Well, Non-toxic, No Acute Distress - Extremities Exam Additional comments: Bilateral LE exam VASC: DP pulses are faintly palpable 1/4 b/l, PT pulses not able to palpate due to edema, Cap refill time: < 3 sec to all digits, Temp gradient: warm to cool from proximal to distal, diffuse 1+ pitting edema noted distal to bilateral knee joint DERM: Superficial wound measuring approx 6.0 cm x 5.5 cm x 0.1 cm noted on the lateral aspect of the left leg, wound base is mainly grannular with active bleeding, no malodor, no purulence, no probe to bone, no tunneling, no tracking , no clinical suspicion of active infection, bilateral LE appears to have tree trunk type appearance, no open wounds on the right side noted NEURO: Protective sensation grossly intact ORTHO: Pain on palpation of the wound site - Neurological Exam Neurological Exam: Alert, Awake, Oriented x3 - Psychiatric Exam Psychiatric exam: Normal Affect, Normal Mood Assessment and Plan - Assessment and Plan (Free Text) Assessment: 57 year old male evaluated for left leg wound secondary to lymphedema Plan: Patient seen and evaluated Discussed plan with attending Dr. Avilez Labs, vitals and charts reviewed - afebrile, no leukocytosis Wound culture - E.coli, proteus mirabilis Blood Cx: MRSA Wound cleaned with saline and dressing applied using xeroform, ABD, EVELYN Continue IV abx as per ID - Vancomycin, zosyn Needs min of 14 days of IV abx PICC line in place Removal of old non functioning delon cath today Stable from podiatry standpoint Upon discharge, please follow up with Dr. Avilez in his office for further wound care Podiatry will follow patient pablo in-house
[2017-09-29] MEDS: Morphine 30 mg SR Tab PO SCH (12:04)
[2017-09-29] MEDS ORDERED: Midazolam 2 MG/2 ML VIAL ONE (13:15)
[2017-09-29] MEDS ORDERED: Propofol 10 mg/ml Inj (20 ML) ONE (13:15)
[2017-09-29] MEDS ORDERED: Bupivacaine 0.25% 20 ML INJ IJ ONE ×2 (13:19→13:28)
[2017-09-29] MEDS ORDERED: Lactated Ringer's 1,000 ML IV ONE (13:25)
[2017-09-29] MEDS ORDERED: Lidocaine 1% 20 MG/2 ML PF AMP ONE (13:27)
[2017-09-29] MEDS ORDERED: ceFAZolin IV 1 gm in Dextrose 0 GM/0 ML BAG IVPB ONE (13:29)
[2017-09-29] MEDS ORDERED: HYDROmorphone 0.5 mg/0.5 ml ISec IVP PRN (14:30)
[2017-09-29 16:33] VITALS: RESP 20
--- NOTE | 2017-09-29 16:43 | CP.PCM.PN ---
Subjective - Date & Time of Evaluation Date of Evaluation: 09/29/17 Time of Evaluation: 09:00 - Subjective Subjective: patient came in with necrotic leg ulcers and sepsis found to have MRSA bacteremia Portacath placed 2 years ago is the likely source now has a PICC left arm ( placed as an emergency ) - repeat cultures are negative but will need to be followed as he is at risk for recurrent line sepsis will need min 14 days IV Vanco from time of first neg blood culture Objective - Vital Signs/Intake and Output Vital Signs (last 24 hours): Temp Pulse Resp BP Pulse Ox 97.3 F L 78 20 118/70 99 09/29/17 15:00 09/29/17 15:00 09/29/17 15:00 09/29/17 15:00 09/29/17 15:00 Intake and Output: 09/29/17 09/29/17 06:59 18:59 Intake Total 850 250 Output Total 350 700 Balance 500 -450 - Medications Medications: Current Medications Enoxaparin Sodium (Lovenox) 40 mg SC DAILY [facility] Last Admin: 09/29/17 10:23 Dose: Not Given Furosemide (Lasix) 40 mg PO BID [facility] Last Admin: 09/29/17 10:22 Dose: 40 mg Piperacillin Sod/Tazobactam Sod (Zosyn 3.375 Gm Iv Premix) 3.375 gm in 50 mls @ 100 mls/hr IVPB Q6H [facility] PRN Reason: Protocol Last Admin: 09/29/17 12:05 Dose: 100 mls/hr Vancomycin/Sodium Chloride (Vancomycin 1 Gm/Ns 200 Ml) 1 gm in 200 mls @ 133.333 mls/hr IVPB Q8H [facility] PRN Reason: Protocol Stop: 10/03/17 18:46 Last Admin: 09/29/17 10:21 Dose: 133.333 mls/hr Morphine Sulfate (Morphine Extended Release Tab) 60 mg PO Q12H [facility] Last Admin: 09/29/17 12:04 Dose: 60 mg Oxycodone HCl (Oxycodone Immediate Release Tab) 30 mg PO Q6H PRN PRN Reason: Pain, severe (8-10) Last Admin: 09/29/17 09:05 Dose: 30 mg Pantoprazole Sodium (Protonix Ec Tab) 40 mg PO DAILY [facility] Last Admin: 07/13/18 10:22 Dose: 40 mg Spironolactone (Aldactone) 25 mg PO BID [facility] Last Admin: 09/29/17 10:23 Dose: 25 mg - Labs Labs: 09/26/17 07:10 09/26/17 07:10 - Constitutional Appears: Non-toxic, Chronically Ill - Head Exam Head Exam: NORMOCEPHALIC - Eye Exam Eye Exam: PERRL - ENT Exam ENT Exam: Mucous Membranes Dry - Neck Exam Neck Exam: absent: Lymphadenopathy - Respiratory Exam Respiratory Exam: Decreased Breath Sounds - Cardiovascular Exam Cardiovascular Exam: REGULAR RHYTHM - GI/Abdominal Exam GI & Abdominal Exam: Distended - Rectal Exam Rectal Exam: Deferred - Exam Exam: NORMAL INSPECTION - Extremities Exam Extremities Exam: Pedal Edema, Tenderness - Back Exam Back Exam: absent: CVA tenderness (L), CVA tenderness (R) - Neurological Exam Neurological Exam: Alert, Awake, Oriented x3 Assessment and Plan (1) Ulcers of both lower extremities, limited to breakdown of skin Status: Acute (2) Venous stasis dermatitis of both lower extremities Status: Acute (3) Morbid obesity Status: Acute (4) Peripheral edema Status: Acute - Assessment and Plan (Free Text) Assessment: patient came in with necrotic leg ulcers and sepsis found to have MRSA bacteremia Portacath placed 2 years ago is the likely source now has a PICC left arm ( placed as an emergency ) - repeat cultures are negative but will need to be followed as he is at risk for recurrent line sepsis will need min 14 days IV Vanco from time of first neg blood culture
[2017-09-30] MEDS: oxyCODONE 30 mg Immediate Release Tab PO PRN ×3 (00:11→17:07)
[2017-09-30] MEDS: Morphine 30 mg SR Tab PO SCH ×2 (00:11→12:05)
[2017-09-30] MEDS: Piperacill/Tazo 3.375gm in Dex 3.375 GM/50 ML BAG IVPB SCH ×3 (00:12→12:41)
--- NOTE | 2017-09-30 00:31 | OP ---
PROCEDURE DATE: 09/29/2017 PREOPERATIVE DIAGNOSIS: Nonfunctioning Port-A-Cath. POSTOPERATIVE DIAGNOSIS: Nonfunctioning Port-A-Cath. PROCEDURE PERFORMED: Excision of nonfunctioning Port-A-Cath of the right chest wall. SURGEON: John Orozco MD ANESTHESIA: General. BLOOD LOSS: 15 mL. POSTOPERATIVE CONDITION: Stable. INDICATIONS FOR SURGERY: This is a 57-year-old male with a history of a nonfunctioning Port-A-Cath who now undergoes wide deep excision. DESCRIPTION OF THE PROCEDURE: The patient was taken to the operating room. General anesthesia was administered. An incision was made. The Port-A-Cath catheter was removed. Bleeding was controlled using the Bovie. Larger blood vessel was repaired. The wound was irrigated with saline. Tissue flap closure was performed with multiple layers of Monocryl, subcuticular Monocryl, and glue. The patient tolerated the procedure well, returned to recovery room in stable condition. John Orozco MD
[2017-09-30] MEDS: Vancomycin 1 gm/NS 200 ml 1 GM/200 ML BAG IVPB SCH ×3 (02:28→18:02)
[2017-09-30] MEDS: Enoxaparin 40 mg Syringe SC SCH (09:39)
[2017-09-30] MEDS: Pantoprazole 40 mg EC Tab PO SCH (11:02)
--- NOTE | 2017-09-30 11:06 | CP.PCM.PN ---
Subjective - Date & Time of Evaluation Date of Evaluation: 09/30/17 Time of Evaluation: 11:03 - Subjective Subjective: pt feels beter repeat blood culture negative Objective - Vital Signs/Intake and Output Vital Signs (last 24 hours): Temp Pulse Resp BP Pulse Ox 98.8 F 84 20 147/79 99 09/30/17 08:00 09/30/17 08:00 09/30/17 08:00 09/30/17 00:00 09/30/17 08:00 Intake and Output: 09/30/17 09/30/17 06:59 18:59 Intake Total 1100 Balance 1100 - Medications Medications: Current Medications Enoxaparin Sodium (Lovenox) 40 mg SC DAILY [facility] Last Admin: 09/30/17 09:39 Dose: Not Given Furosemide (Lasix) 40 mg PO BID [facility] Last Admin: 09/29/17 17:53 Dose: 40 mg Piperacillin Sod/Tazobactam Sod (Zosyn 3.375 Gm Iv Premix) 3.375 gm in 50 mls @ 100 mls/hr IVPB Q6H [facility] PRN Reason: Protocol Last Admin: 09/30/17 06:10 Dose: 100 mls/hr Vancomycin/Sodium Chloride (Vancomycin 1 Gm/Ns 200 Ml) 1 gm in 200 mls @ 133.333 mls/hr IVPB Q8H [facility] PRN Reason: Protocol Stop: 10/03/17 18:46 Last Admin: 09/30/17 02:28 Dose: 133.333 mls/hr Morphine Sulfate (Morphine Extended Release Tab) 60 mg PO Q12H [facility] Last Admin: 09/30/17 00:11 Dose: 60 mg Oxycodone HCl (Oxycodone Immediate Release Tab) 30 mg PO Q6H PRN PRN Reason: Pain, severe (8-10) Last Admin: 09/30/17 00:11 Dose: 30 mg Pantoprazole Sodium (Protonix Ec Tab) 40 mg PO DAILY [facility] Last Admin: 09/29/17 10:22 Dose: 40 mg Spironolactone (Aldactone) 25 mg PO BID [facility] Last Admin: 09/29/17 17:52 Dose: 25 mg - Labs Labs: 09/26/17 07:10 09/26/17 07:10 - Constitutional Appears: Non-toxic - Head Exam Head Exam: NORMAL INSPECTION - Eye Exam Eye Exam: Normal appearance Pupil Exam: NORMAL ACCOMODATION - ENT Exam ENT Exam: Normal Exam - Neck Exam Neck Exam: Full ROM - Respiratory Exam Respiratory Exam: Clear to Ausculation Bilateral - Cardiovascular Exam Cardiovascular Exam: REGULAR RHYTHM - GI/Abdominal Exam GI & Abdominal Exam: Normal Bowel Sounds - Rectal Exam Rectal Exam: NORMAL INSPECTION - Exam Exam: NORMAL INSPECTION - Extremities Exam Additional comments: stasis dermatitis ulcers infection geting beter - Neurological Exam Neurological Exam: Alert, Normal Gait, Oriented x3 - Psychiatric Exam Psychiatric exam: Normal Affect - Skin Skin Exam: Normal Color Assessment and Plan - Assessment and Plan (Free Text) Assessment: infection leg ulcer improving s/p MRSA BLOOD CLEARED WILL DISCUSS WITH DR ABERNATHY AND D/C FELIPA FOR D/C PLAN Plan: PER ORDERS
--- NOTE | 2017-09-30 11:12 | CP.PCM.PN ---
Subjective - Date & Time of Evaluation Date of Evaluation: 09/30/17 Time of Evaluation: 11:08 - Subjective Subjective: Podiatry Progress note: Dr. Avilez 57 year old male was seen and evaluated at bedside with attending Dr. Avilez for left LE wound. Patient is AAOx3 and appears well. Denies of any acute overnight events. Denies of recent F/N/V/C/SOB/CP/headache. Denies of any other pedal complains at this time. Objective - Vital Signs/Intake and Output Vital Signs (last 24 hours): Temp Pulse Resp BP Pulse Ox 98.8 F 84 20 148/81 99 09/30/17 08:00 09/30/17 08:00 09/30/17 08:00 09/30/17 11:02 09/30/17 08:00 Intake and Output: 09/30/17 09/30/17 06:59 18:59 Intake Total 1100 Balance 1100 - Medications Medications: Current Medications Enoxaparin Sodium (Lovenox) 40 mg SC DAILY [facility] Last Admin: 09/30/17 09:39 Dose: Not Given Furosemide (Lasix) 40 mg PO BID [facility] Last Admin: 09/30/17 11:02 Dose: 40 mg Piperacillin Sod/Tazobactam Sod (Zosyn 3.375 Gm Iv Premix) 3.375 gm in 50 mls @ 100 mls/hr IVPB Q6H [facility] PRN Reason: Protocol Last Admin: 09/30/17 06:10 Dose: 100 mls/hr Vancomycin/Sodium Chloride (Vancomycin 1 Gm/Ns 200 Ml) 1 gm in 200 mls @ 133.333 mls/hr IVPB Q8H [facility] PRN Reason: Protocol Stop: 10/03/17 18:46 Last Admin: 09/30/17 11:03 Dose: 133.333 mls/hr Morphine Sulfate (Morphine Extended Release Tab) 60 mg PO Q12H [facility] Last Admin: 09/30/17 00:11 Dose: 60 mg Oxycodone HCl (Oxycodone Immediate Release Tab) 30 mg PO Q6H PRN PRN Reason: Pain, severe (8-10) Last Admin: 09/30/17 00:11 Dose: 30 mg Pantoprazole Sodium (Protonix Ec Tab) 40 mg PO DAILY [facility] Last Admin: 09/30/17 11:02 Dose: 40 mg Spironolactone (Aldactone) 25 mg PO BID [facility] Last Admin: 09/30/17 11:03 Dose: 25 mg - Labs Labs: 09/26/17 07:10 09/26/17 07:10 - Constitutional Appears: Well, Non-toxic, No Acute Distress - Extremities Exam Additional comments: Bilateral LE exam VASC: DP pulses are faintly palpable 1/4 b/l, PT pulses not able to palpate due to edema, Cap refill time: < 3 sec to all digits, Temp gradient: warm to cool from proximal to distal, diffuse 1+ pitting edema noted distal to bilateral knee joint DERM: Superficial wound measuring approx 6.0 cm x 5.5 cm x 0.1 cm noted on the lateral aspect of the left leg, wound base is mainly grannular with no active drainage, no malodor, no purulence, no probe to bone, no tunneling, no tracking , no clinical suspicion of active infection, bilateral LE appears to have tree trunk type appearance, no open wounds on the right side noted NEURO: Protective sensation grossly intact ORTHO: Pain on palpation of the wound site - Neurological Exam Neurological Exam: Alert, Awake, Oriented x3 - Psychiatric Exam Psychiatric exam: Normal Affect, Normal Mood Assessment and Plan - Assessment and Plan (Free Text) Assessment: 57 year old male evaluated for left leg wound secondary to lymphedema Plan: Patient seen and evaluated with attending Dr. Avilez Labs, vitals and charts reviewed - afebrile, no leukocytosis Wound culture - E.coli, proteus mirabilis Blood Cx (09/25): MRSA Blood Cx (09/28): No growth after 48 hours Wound cleaned with saline and dressing applied using xeroform, ABD, EVELYN Continue IV abx as per ID - Vancomycin, zosyn Needs 14 days of IV Vanco after clean blood cx PICC line in place s/p removal of old non functioning delon cath Stable from podiatry standpoint Upon discharge, please follow up with Dr. Avilez in his office for further wound care Podiatry will follow marcelina shah in-house
[2017-10-01] MEDS: Morphine 30 mg SR Tab PO SCH ×3 (00:01→23:55)
[2017-10-01] MEDS: Vancomycin 1 gm/NS 200 ml 1 GM/200 ML BAG IVPB SCH ×3 (02:45→18:42)
[2017-10-01] MEDS: oxyCODONE 30 mg Immediate Release Tab PO PRN ×2 (07:28→17:20)
--- NOTE | 2017-10-01 10:20 | CP.PCM.PN ---
Subjective - Date & Time of Evaluation Date of Evaluation: 10/01/17 Time of Evaluation: 10:17 - Subjective Subjective: pt seen and examined vanco level me Objective - Vital Signs/Intake and Output Vital Signs (last 24 hours): Temp Pulse Resp BP Pulse Ox 98.9 F 76 20 118/69 96 10/01/17 00:00 10/01/17 00:00 10/01/17 00:00 10/01/17 00:00 10/01/17 00:00 Intake and Output: 10/01/17 10/01/17 06:59 18:59 Intake Total 1000 Output Total 650 Balance 350 - Medications Medications: Current Medications Enoxaparin Sodium (Lovenox) 40 mg SC DAILY [facility] Last Admin: 09/30/17 09:39 Dose: Not Given Furosemide (Lasix) 40 mg PO BID [facility] Last Admin: 09/30/17 17:09 Dose: 40 mg Vancomycin/Sodium Chloride (Vancomycin 1 Gm/Ns 200 Ml) 1 gm in 200 mls @ 133.333 mls/hr IVPB Q12H [facility] PRN Reason: Protocol Stop: 10/06/17 07:01 Last Admin: 10/01/17 07:15 Dose: 133.333 mls/hr Morphine Sulfate (Morphine Extended Release Tab) 60 mg PO Q12H [facility] Last Admin: 10/01/17 00:01 Dose: 60 mg Oxycodone HCl (Oxycodone Immediate Release Tab) 30 mg PO Q6H PRN PRN Reason: Pain, severe (8-10) Last Admin: 10/01/17 07:28 Dose: 30 mg Pantoprazole Sodium (Protonix Ec Tab) 40 mg PO DAILY [facility] Last Admin: 09/30/17 11:02 Dose: 40 mg Spironolactone (Aldactone) 25 mg PO BID [facility] Last Admin: 09/30/17 17:07 Dose: 25 mg - Labs Labs: 09/26/17 07:10 09/26/17 07:10 - Constitutional Appears: Non-toxic - Head Exam Head Exam: NORMAL INSPECTION - Eye Exam Eye Exam: Normal appearance Pupil Exam: NORMAL ACCOMODATION - ENT Exam ENT Exam: Mucous Membranes Moist - Neck Exam Neck Exam: Full ROM - Respiratory Exam Respiratory Exam: NORMAL BREATHING PATTERN - Cardiovascular Exam Cardiovascular Exam: REGULAR RHYTHM - GI/Abdominal Exam GI & Abdominal Exam: Normal Bowel Sounds - Rectal Exam Rectal Exam: Deferred - Exam Exam: NORMAL INSPECTION - Back Exam Back Exam: NORMAL INSPECTION - Neurological Exam Neurological Exam: Alert, Normal Gait, Oriented x3 - Psychiatric Exam Psychiatric exam: Normal Affect - Skin Skin Exam: Normal Color Assessment and Plan - Assessment and Plan (Free Text) Assessment: s/p mrsa blood stasis dermatitis infected leg ulcers will discus with id to dec vanco arrange for d/c home to cont iv vanco at home Plan: deann jordan
[2017-10-01] MEDS: Enoxaparin 40 mg Syringe SC SCH (10:35)
[2017-10-01] MEDS: Pantoprazole 40 mg EC Tab PO SCH (10:37)
--- NOTE | 2017-10-01 13:28 | CP.PCM.PN ---
Subjective - Date & Time of Evaluation Date of Evaluation: 10/01/17 Time of Evaluation: 13:25 - Subjective Subjective: Podiatry Progress note: Dr. Avilez 57 year old male was seen and evaluated at bedside for left LE wound. Patient is AAOx3 and appears well. Denies of any acute overnight events. Reports that his dressing is clean and no strike-through; patient denies dressing change. Denies of recent F/N/V/C/SOB/CP/headache. Denies of any other pedal complains at this time. Objective - Vital Signs/Intake and Output Vital Signs (last 24 hours): Temp Pulse Resp BP Pulse Ox 98.9 F 76 20 122/76 96 10/01/17 00:00 10/01/17 00:00 10/01/17 00:00 10/01/17 10:38 10/01/17 00:00 Intake and Output: 10/01/17 10/01/17 06:59 18:59 Intake Total 1000 Output Total 650 Balance 350 - Medications Medications: Current Medications Enoxaparin Sodium (Lovenox) 40 mg SC DAILY [facility] Last Admin: 10/01/17 10:35 Dose: Not Given Furosemide (Lasix) 40 mg PO BID [facility] Last Admin: 10/01/17 10:38 Dose: 40 mg Vancomycin/Sodium Chloride (Vancomycin 1 Gm/Ns 200 Ml) 1 gm in 200 mls @ 133.333 mls/hr IVPB Q12H [facility] PRN Reason: Protocol Stop: 10/06/17 07:01 Last Admin: 10/01/17 07:15 Dose: 133.333 mls/hr Morphine Sulfate (Morphine Extended Release Tab) 60 mg PO Q12H [facility] Last Admin: 10/01/17 12:09 Dose: 60 mg Oxycodone HCl (Oxycodone Immediate Release Tab) 30 mg PO Q6H PRN PRN Reason: Pain, severe (8-10) Last Admin: 10/01/17 07:28 Dose: 30 mg Pantoprazole Sodium (Protonix Ec Tab) 40 mg PO DAILY [facility] Last Admin: 10/01/17 10:37 Dose: 40 mg Spironolactone (Aldactone) 25 mg PO BID [facility] Last Admin: 10/01/17 10:38 Dose: 25 mg - Labs Labs: 09/26/17 07:10 09/26/17 07:10 - Constitutional Appears: Well, Non-toxic, No Acute Distress - Extremities Exam Additional comments: Dressing to bilateral LE is clean, dry and intact, no strike-through noted No drainage noted - Neurological Exam Neurological Exam: Alert, Awake, Oriented x3 - Psychiatric Exam Psychiatric exam: Normal Affect, Normal Mood Assessment and Plan - Assessment and Plan (Free Text) Assessment: 57 year old male evaluated for left leg wound secondary to lymphedema Plan: Patient seen and evaluated with attending Dr. Avilez Labs, vitals and charts reviewed - afebrile, no leukocytosis Wound culture - E.coli, proteus mirabilis Blood Cx (09/25): MRSA Blood Cx (09/28): No growth after 48 hours Patient refused dressing change - dressing is clean, dry and intact Continue IV abx as per ID - Vancomycin Needs 14 days of IV Vanco after clean blood cx PICC line in place s/p removal of old non functioning delon cath Stable from podiatry standpoint Upon discharge, please follow up with Dr. Avilez in his office for further wound care Podiatry will follow patient pablo in-house
--- NOTE | 2017-10-01 14:58 | CARD ---
APPROVED REPORT Date of service: 09/28/2017 EXAM: Two-dimensional and M-mode echocardiogram with Doppler and color Doppler. Other Information Quality : TDSRhythm : INDICATION Peripheral Edema R/O ENDOCARDITIS RISK FACTORS Hypertension 2D DIMENSIONS IVSd1.9 (0.7-1.1cm)LVDd4.4 (3.9-5.9cm) PWd1.6 (0.7-1.1cm)LVDs2.6 (2.5-4.0cm) FS (%) 41.9 %LVEF (%)73.1 (>50%) M-Mode DIMENSIONS RVDd2.73 (2.1-3.2cm)Left Atrium (MM)4.21 (2.5-4.0cm) IVSd1.61 (0.7-1.1cm)Aortic Root2.81 (2.2-3.7cm) LVDd4.56 (4.0-5.6cm)Aortic Cusp Exc.2.02 (1.5-2.0cm) PWd1.48 (0.7-1.1cm)FS (%) 43 % LVDs2.60 (2.0-3.8cm)LVEF (%)74 (>50%) Mitral Valve MV E Bngulxxz871.4cm/sMV A Zjhlxuzg384.5cm/sE/A ratio1.1 TDI E/Lateral E'0.0E/Medial E'0.0 Tricuspid Valve TR Peak Hroezotx211lk/sTR Peak Gr.8mmHg <Conclusion> poor window. tds. la is mildly dilated. lv,ra & rv size appears normal. moderately severe concnetric lvh with normal lvef of 65-70%. normal lv diastolic filling. thickened mitral leaflets. aortic valve is probably normal. trace tr. rt sided structures not well seen. no pericardial effusion.
--- NOTE | 2017-10-01 15:37 | CP.PCM.PN ---
Subjective - Date & Time of Evaluation Date of Evaluation: 10/01/17 Time of Evaluation: 07:00 - Subjective Subjective: patient came in with necrotic leg ulcers and sepsis found to have MRSA bacteremia Portacath placed 2 years ago is the likely source now has a PICC left arm ( placed as an emergency ) - repeat cultures are negative but will need to be followed as he is at risk for recurrent line sepsis will need min 14 days IV Vanco from time of first neg blood culture Objective - Vital Signs/Intake and Output Vital Signs (last 24 hours): Temp Pulse Resp BP Pulse Ox 98.9 F 76 20 122/76 96 10/01/17 00:00 10/01/17 00:00 10/01/17 00:00 10/01/17 10:38 10/01/17 00:00 Intake and Output: 10/01/17 10/01/17 06:59 18:59 Intake Total 1000 500 Output Total 650 Balance 350 500 - Medications Medications: Current Medications Enoxaparin Sodium (Lovenox) 40 mg SC DAILY [facility] Last Admin: 10/01/17 10:35 Dose: Not Given Furosemide (Lasix) 40 mg PO BID [facility] Last Admin: 10/01/17 10:38 Dose: 40 mg Vancomycin/Sodium Chloride (Vancomycin 1 Gm/Ns 200 Ml) 1 gm in 200 mls @ 133.333 mls/hr IVPB Q12H [facility] PRN Reason: Protocol Stop: 10/06/17 07:01 Last Admin: 10/01/17 07:15 Dose: 133.333 mls/hr Morphine Sulfate (Morphine Extended Release Tab) 60 mg PO Q12H [facility] Last Admin: 10/01/17 12:09 Dose: 60 mg Oxycodone HCl (Oxycodone Immediate Release Tab) 30 mg PO Q6H PRN PRN Reason: Pain, severe (8-10) Last Admin: 10/01/17 07:28 Dose: 30 mg Pantoprazole Sodium (Protonix Ec Tab) 40 mg PO DAILY [facility] Last Admin: 10/01/17 10:37 Dose: 40 mg Spironolactone (Aldactone) 25 mg PO BID [facility] Last Admin: 10/01/17 10:38 Dose: 25 mg - Labs Labs: 09/26/17 07:10 09/26/17 07:10 - Constitutional Appears: Well - Head Exam Head Exam: ATRAUMATIC, NORMAL INSPECTION, NORMOCEPHALIC - Eye Exam Eye Exam: EOMI, Normal appearance, PERRL Pupil Exam: NORMAL ACCOMODATION, PERRL - ENT Exam ENT Exam: Mucous Membranes Moist, Normal Exam - Neck Exam Neck Exam: Full ROM, Normal Inspection. absent: Lymphadenopathy - Respiratory Exam Respiratory Exam: Clear to Ausculation Bilateral, NORMAL BREATHING PATTERN - Cardiovascular Exam Cardiovascular Exam: REGULAR RHYTHM, +S1, +S2. absent: Murmur - GI/Abdominal Exam GI & Abdominal Exam: Soft, Normal Bowel Sounds. absent: Tenderness - Rectal Exam Rectal Exam: NORMAL INSPECTION - Exam Exam: Circumcision, NORMAL INSPECTION - Extremities Exam Extremities Exam: Full ROM, Normal Capillary Refill, Normal Inspection. absent : Joint Swelling, Pedal Edema - Back Exam Back Exam: NORMAL INSPECTION - Neurological Exam Neurological Exam: Alert, Awake, CN II-XII Intact, Normal Gait, Oriented x3 - Psychiatric Exam Psychiatric exam: Normal Affect, Normal Mood - Skin Skin Exam: Dry, Intact Assessment and Plan (1) Ulcers of both lower extremities, limited to breakdown of skin Status: Acute (2) Venous stasis dermatitis of both lower extremities Status: Acute (3) Morbid obesity Status: Acute (4) Peripheral edema Status: Acute - Assessment and Plan (Free Text) Assessment: patient came in with necrotic leg ulcers and sepsis found to have MRSA bacteremia Portacath placed 2 years ago is the likely source now has a PICC left arm ( placed as an emergency ) - repeat cultures are negative but will need to be followed as he is at risk for recurrent line sepsis will need min 14 days IV Vanco from time of first neg blood culture
[2017-10-02] MEDS: oxyCODONE 30 mg Immediate Release Tab PO PRN ×2 (05:45→13:34)
[2017-10-02] MEDS: Vancomycin 1 gm/NS 200 ml 1 GM/200 ML BAG IVPB SCH (06:58)
--- NOTE | 2017-10-02 08:03 | CP.PCM.PN ---
Subjective - Date & Time of Evaluation Date of Evaluation: 10/02/17 Time of Evaluation: 08:03 Objective - Vital Signs/Intake and Output Vital Signs (last 24 hours): Temp Pulse Resp BP Pulse Ox 98.4 F 64 20 128/81 99 10/02/17 00:00 10/02/17 00:00 10/02/17 00:00 10/02/17 00:00 10/02/17 00:00 Intake and Output: 10/02/17 10/02/17 06:59 18:59 Intake Total 1080 Output Total 500 Balance 580 - Medications Medications: Current Medications Enoxaparin Sodium (Lovenox) 40 mg SC DAILY [facility] Last Admin: 10/01/17 10:35 Dose: Not Given Furosemide (Lasix) 40 mg PO BID [facility] Last Admin: 10/01/17 17:28 Dose: 40 mg Vancomycin/Sodium Chloride (Vancomycin 1 Gm/Ns 200 Ml) 1 gm in 200 mls @ 133.333 mls/hr IVPB Q12H [facility] PRN Reason: Protocol Stop: 10/06/17 07:01 Last Admin: 10/02/17 06:58 Dose: 133.333 mls/hr Morphine Sulfate (Morphine Extended Release Tab) 60 mg PO Q12H [facility] Last Admin: 10/01/17 23:55 Dose: 60 mg Oxycodone HCl (Oxycodone Immediate Release Tab) 30 mg PO Q6H PRN PRN Reason: Pain, severe (8-10) Last Admin: 10/02/17 05:45 Dose: 30 mg Pantoprazole Sodium (Protonix Ec Tab) 40 mg PO DAILY [facility] Last Admin: 10/01/17 10:37 Dose: 40 mg Spironolactone (Aldactone) 25 mg PO BID [facility] Last Admin: 10/01/17 17:28 Dose: 25 mg - Labs Labs: 09/26/17 07:10 09/26/17 07:10
[2017-10-02] MEDS: Pantoprazole 40 mg EC Tab PO SCH (09:51)
[2017-10-02] MEDS: Enoxaparin 40 mg Syringe SC SCH (09:51)
[2017-10-02 12:13] VITALS: BP 131/70; PULSE 66; TEMP 97.9; O2SAT 97
[2017-10-02] MEDS: Morphine 30 mg SR Tab PO SCH (12:50)
--- NOTE | 2017-10-02 12:51 | CP.PCM.PN ---
Subjective - Date & Time of Evaluation Date of Evaluation: 10/02/17 Time of Evaluation: 07:00 - Subjective Subjective: repeat c/s neg cont iv vanco Objective - Vital Signs/Intake and Output Vital Signs (last 24 hours): Temp Pulse Resp BP Pulse Ox 97.9 F 66 20 131/70 97 10/02/17 08:05 10/02/17 08:05 10/02/17 08:05 10/02/17 09:50 10/02/17 08:05 Intake and Output: 10/02/17 10/02/17 06:59 18:59 Intake Total 1080 Output Total 500 Balance 580 - Medications Medications: Current Medications Furosemide (Lasix) 40 mg PO BID [facility] Last Admin: 10/02/17 09:50 Dose: 40 mg Vancomycin/Sodium Chloride (Vancomycin 1 Gm/Ns 200 Ml) 1 gm in 200 mls @ 133.333 mls/hr IVPB Q12H [facility] PRN Reason: Protocol Stop: 10/06/17 07:01 Last Admin: 10/02/17 06:58 Dose: 133.333 mls/hr Morphine Sulfate (Morphine Extended Release Tab) 60 mg PO Q12H [facility] Last Admin: 10/01/17 23:55 Dose: 60 mg Oxycodone HCl (Oxycodone Immediate Release Tab) 30 mg PO Q6H PRN PRN Reason: Pain, severe (8-10) Last Admin: 10/02/17 05:45 Dose: 30 mg Pantoprazole Sodium (Protonix Ec Tab) 40 mg PO DAILY [facility] Last Admin: 10/02/17 09:51 Dose: 40 mg Spironolactone (Aldactone) 25 mg PO BID [facility] Last Admin: 10/02/17 09:51 Dose: 25 mg - Labs Labs: 09/26/17 07:10 09/26/17 07:10 - Constitutional Appears: Non-toxic - Head Exam Head Exam: NORMOCEPHALIC - Eye Exam Eye Exam: PERRL - ENT Exam ENT Exam: Mucous Membranes Dry - Neck Exam Neck Exam: absent: Lymphadenopathy - Respiratory Exam Respiratory Exam: Decreased Breath Sounds - Cardiovascular Exam Cardiovascular Exam: REGULAR RHYTHM Assessment and Plan (1) Ulcers of both lower extremities, limited to breakdown of skin Status: Acute (2) Venous stasis dermatitis of both lower extremities Status: Acute (3) Morbid obesity Status: Acute (4) Peripheral edema Status: Acute
--- NOTE | 2017-10-02 17:20 | CP.PCM.PN ---
Subjective - Date & Time of Evaluation Date of Evaluation: 10/02/17 Time of Evaluation: 11:00 - Subjective Subjective: alert and orientedx3, denies pain, sob or chest pains. Objective - Vital Signs/Intake and Output Vital Signs (last 24 hours): Temp Pulse Resp BP Pulse Ox 97.9 F 66 20 131/70 97 10/02/17 08:05 10/02/17 08:05 10/02/17 08:05 10/02/17 09:50 10/02/17 08:05 Intake and Output: 10/02/17 10/02/17 06:59 18:59 Intake Total 1080 350 Output Total 500 Balance 580 350 - Labs Labs: 09/26/17 07:10 09/26/17 07:10 Assessment and Plan - Assessment and Plan (Free Text) Assessment: 57 year old male admitted with left leg wound infection, seen and examined. Alert and oriented x3, no sob or chest pains. IV vancomycin 1 gm bid arranged as home infusion via PICC line, as home infusion for [address] Nix. Discussed with DR Gonsalez, plan to discharge home as per DR Gonsalez.Advised to follow up with PMD in 1 week. Blood works to be done q week.
== END 2017-10-02 14:59 | disposition home or self-care (01) | DRG 314 ==
LOC: C.ER 01:43 → C.3T 03:08
PROVIDERS: ADMIT Internal Medicine; ATTEND Internal Medicine
PROC: 02HV33Z Insertion of Infusion Device into Superior Vena Cava, Percutaneous Approach (ICD-10-PCS; principal; 2017-09-29 16:45)
DX: T80.211A Bloodstream infection due to central venous catheter, initial encounter (principal); A41.9 Sepsis, unspecified organism; L03.115 Cellulitis of right lower limb; L03.116 Cellulitis of left lower limb; L97.919 Non-pressure chronic ulcer of unspecified part of right lower leg with unspecified severity; L97.929 Non-pressure chronic ulcer of unspecified part of left lower leg with unspecified severity; Z68.41 Body mass index [BMI] 40.0-44.9, adult; I11.0 Hypertensive heart disease with heart failure; E66.01 Morbid (severe) obesity due to excess calories; E11.622 Type 2 diabetes mellitus with other skin ulcer; B95.62 Methicillin resistant Staphylococcus aureus infection as the cause of diseases classified elsewhere; G47.30 Sleep apnea, unspecified; G89.29 Other chronic pain; I50.9 Heart failure, unspecified; I87.2 Venous insufficiency (chronic) (peripheral); M06.9 Rheumatoid arthritis, unspecified; Z79.891 Long term (current) use of opiate analgesic; Z98.84 Bariatric surgery status